=== PATIENT | female | born 1970 | race Caucasian/White ===

== ENCOUNTER 2023-09-03 15:51 | Outpatient (AMB) | payer BC, SELFPAY ==
--- NOTE | 2023-09-03 16:02 | MHC.PC.OV ---
Vital Signs 09/03/23 16:18 Height 5 ft 2.28 in Weight 172 lb 8 oz BMI 31.3 BP 102/66 Blood Pressure Location Lt brachial Position Sitting Respiration 14 Temp 97.6 F Temp Source Oral Intake Visit Reasons: Establish Care transfer Intake Note: New patient visit Allergies benzocaine topical Allergy (Unknown, Uncoded 09/03/23 16:04) burning skin nuts Allergy (Unknown, Uncoded 09/03/23 16:04) burning skin nuts, peanuts Allergy (Unknown, Uncoded 01/24/23 13:05) anaphylaxis nuts, soy Allergy (Unknown, Uncoded 01/24/23 13:05) gi upset Tobacco use date assessed: 09/03/23 Dental Screening Dental Screen Date: 09/03/23 Did you have a dental visit in the last 12 months?: Yes Did you have a dental problem in the last 6 months where you did not have access to dental care?: No Was dental information given to patient?: Patient has dentist HPI HPI Comments History of Present Illness Details The patient is a 53 year old female with a past medical history of prediabetes, anxiety, GERD, hyperlipidemia, hypothyroid, elevated LFTs, ASCUS, memory loss presenting for follow up She is troubled by ongoing memory changes. Worse over the past six months. Children tell her they are repeating themselves. She is not remembering things that happened in the last day, week. Feels like she has to concentrate on concentrating. She was seen for this previously. Did have an MRI-this showed microvascular disease. Dad had parkinsons, memory problems. She is having severe menopausal hot flashes. She went to integrative medicine and was prescribed bioidentical hormone replacement but she has been hesitant to start it. In past 2-3 months has had increased exertional fatigue, mild shortness of breath. No bess chest pain, sometimes tightness. BH: 2022. She continues to grieve but doing ok. Her eldest daughter recently graduated from high school. Mixed feelings. She followed with [facility] and has now transferred to a community therapist. Was on citalopram but intolerant side effects. Was on armodafinil for significant fatigue-had chest pain with this medication. Had more energy with adderall but worried that worsening memory so stopped. Was taking seroquel at night. stopped this History of prediabetes-continues to work out regularly, eat healthy. She was taking mounjaro with good effect Hypothyroid: TSH has been within goal on levothyroxine. Urogyn: Follows with urogyn. History of abnormal menses. Denia/menopausal. GERD: Stable. Saw GI-[facility]. On pepcid omeprazole Mammo UTD, pap UTD. Had colonoscopy 10/2020. ROS CONSTITUTIONAL: Denies weight loss, fever and chills. HEENT: Denies changes in vision and hearing. RESPIRATORY: Denies SOB and cough. CV: Denies palpitations and CP GI: Denies abdominal pain, nausea, vomiting and diarrhea. : Denies dysuria and urinary frequency. MSK: Denies new myalgia and joint pain. SKIN: Denies rash and pruritus. NEUROLOGICAL: Denies headache PSYCHIATRIC: Denies recent changes in mood. PHYSICAL EXAM: GENERAL: Alert and oriented x 3. NAD EYES: EOMI. Anicteric. HENT: Moist mucous membranes. No scleral icterus. No cervical lymphadenopathy. LUNGS: Clear to auscultation bilaterally. CARDIOVASCULAR: Regular rate and rhythm. No murmur. No JVD. ABDOMEN: Soft, non-tender +bs EXTREMITIES: No edema. Non-tender. SKIN: No rashes or lesions. Warm. NEUROLOGIC: No focal neurological deficits. CN II-XII grossly intact PSYCHIATRIC: Cooperative. 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 1. Little interest or pleasure in doing things: several days 2. Feeling down, depressed, or hopeless: several days 3. Trouble falling or staying asleep, or sleeping too much: more than half the days 4. Feeling tired or having little energy: several days 5. Poor appetite or overeating: not at all 6. Feeling bad about yourself - or that you are a failure or have let yourself or your family down: not at all 7. Trouble concentrating on things, such as reading the newspaper or watching television: more than half the days 8. Moving or speaking so slowly that other people could have noticed. Or the opposite - being so fidgety or restless that you have been moving around a lot more than usual: not at all 9. Thoughts that you would be better off or of hurting yourself in some way: not at all Total score: 7 Depression Screening Interpretation: Positive Depression Screening Follow-up: Community Mental Health Worker F/U Depression Screening Done: Yes Source: Developed by Drs. Chi Melgar, Eboni Renner, Roberto Bertrand and colleagues, with an educational toni from [employer]. AUDIT C Alcohol Use Questionnaire (AUDIT-C) 1. How often do you have a drink containing alcohol?: 2-4 times a month 2. How many drinks containing alcohol do you have on a typical day when you are drinking?: 3 or 4 3. How often do you have six or more drinks on one occasion?: Less than monthly (Couple times a year) Total Score: 4 Physical exam (Primary Care) Vital Signs: Last Vital Signs Temp 97.6 F 09/03/23 16:18 Resp 14 09/03/23 16:18 BP 102/66 09/03/23 16:18 BMI result Body Mass Index 31.3 Tobacco/Smoking Status: Tobacco use Status Tobacco use date assessed 09/03/23 09/03/23 16:20 Patient Tobacco Use Status Former Tobacco user 09/03/23 16:20 e-Cigarette/Vaping Use Never Used 09/03/23 16:20 PHQ-9: PHQ-9 Score PHQ-9: Total score 7 09/05/23 11:08 Depression Screening Interpretation: Positive Depression Screening Follow-up: Community Mental Health Worker F/U Assessment and Plan Assessment & Plan (1) Hot flashes: Comment: 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 Consider hormone replacement. Has not responded to SSRI Code(s): R23.2 - Flushing (2) Memory loss: Code(s): R41.3 - Other amnesia (3) Cerebral microvascular disease: Comment: Referral to memory clinic, neuropsychiatric testing Code(s): I67.89 - Other cerebrovascular disease (4) Fatigue: Code(s): R53.83 - Other fatigue Qualifiers: Fatigue type: unspecified Qualified Code(s): R53.83 - Other fatigue (5) Exertional dyspnea: Comment: Exercise stress test. Code(s): R06.09 - Other forms of dyspnea (6) Prediabetes: Code(s): R73.03 - Prediabetes Orders: Orders CA stress test 09/05/23 I67.89 - Other cerebrovascular disease, R06.09 - Other forms of dyspnea, R73.03 - Prediabetes Referrals Neurology Referral I67.89 - Other cerebrovascular disease, R41.3 - Other amnesia Neuropsychiatry Referral I67.89 - Other cerebrovascular disease, R41.3 - Other amnesia Coding Level of Care Code Tele Est Pt Level 4 (67023) Complex EM visit Add On G2211 Diagnoses Hot flashes R23.2 Memory loss R41.3 Cerebral microvascular disease I67.89 Fatigue, unspecified type R53.83 Fatigue type: unspecified Exertional dyspnea R06.09 Prediabetes R73.03
[2023-09-03 16:18] VITALS: BP 102/66; RESP 14; TEMP 36.4; BMI 31.3
== END 2023-09-03 16:41 | disposition home or self-care (01) ==
PROVIDERS: PCP Internal Medicine; Visit Provider Internal Medicine
DX: R23.2 Flushing (principal); R73.03 Prediabetes; R41.3 Other amnesia; I67.89 Other cerebrovascular disease; R53.83 Other fatigue; R06.09 Other forms of dyspnea
CPT/HCPCS: 99214

== ENCOUNTER → 2023-09-25 08:01 | Outpatient (REF) | payer BC, SELFPAY ==
--- NOTE | 2023-09-25 08:11 | CA_ITS ---
Acquisition Time: 2023-09-25 08:23:52 Total Exercise Time: 00:08:45 Test Indications: SOB Medications: SEE H Protocol: ANDREEA Max HR: 144 BPM 86% of Pred: 167 BPM Max BP: 170/090 mmHG Max Work Load: 10.1 METS Exercise stress test exercise 8 min 45 sec of Andreea protocol achieving 86% MPHR, with 4-5/10 chest pressure mid to left side, mild to moderate SOB, without arrhythmias, with normotensive response to exercise, without EKG changes. CHest pressure resolved by 2.5 min recovery. Breathing returned to baseline, Test reviewed with Dr. Covarrubias Suggest further testing due to chest pressure on exertion Referred By: Katia Guerrier Overread By: Renu Bolden
== END ==
LOC: HO.CARD 08:01
PROVIDERS: PCP Internal Medicine; Visit Provider Internal Medicine
DX: R06.09 Other forms of dyspnea (principal); I67.89 Other cerebrovascular disease; R73.03 Prediabetes
CPT/HCPCS: 93017

== ENCOUNTER → 2023-09-25 08:11 | Outpatient (BNV) | payer BC, SELFPAY | PROVIDERS: PCP Internal Medicine; Visit Provider Nurse Practitioner | DX: R06.02 Shortness of breath (principal) | CPT/HCPCS: 93016; 93018 ==

== ENCOUNTER 2023-10-22 15:50 | Outpatient (AMB) | payer BC, SELFPAY ==
--- NOTE | 2023-10-22 15:52 | MHC.PC.OV ---
Vital Signs 10/22/23 15:53 Height 5 ft 2 in Weight 172 lb BMI 31.5 BP 98/60 Blood Pressure Location Lt brachial Position Sitting Respiration 12 Pulse 88 Pulse Source Pulse Oximeter Pulse Oximetry (%) 99 Oxygen Delivery Method Room Air Intake Visit Reasons: follow up memory clinic/ stress test Intake Note: Patient is here to follow up for stress test ad memory clinic visit. Patient requests a refill on synthroid. Visual Coordinator Required: No Accompanied by: Self / Same As Patient Allergies benzocaine topical Allergy (Unknown, Uncoded 10/22/23 15:58) burning skin nuts Allergy (Unknown, Uncoded 10/22/23 15:58) burning skin nuts, peanuts Allergy (Unknown, Uncoded 10/22/23 15:58) anaphylaxis nuts, soy Allergy (Unknown, Uncoded 10/22/23 15:58) gi upset Tobacco use date assessed: 09/03/23 Dental Screening Dental Screen Date: 09/03/23 HPI HPI Comments History of Present Illness Details The patient is a 53 year old female with a past medical history of prediabetes, anxiety, GERD, hyperlipidemia, hypothyroid, elevated LFTs, ASCUS, memory loss presenting for follow up At last visit She is troubled by ongoing memory changes. Worse over the past six months. Children tell her they are repeating themselves. She is not remembering things that happened in the last day, week. Feels like she has to concentrate on concentrating. She was seen for this previously. Did have an MRI-this showed microvascular disease. Dad had parkinsons, memory problems. She was referred to neurology who recommended memory clinic referral which has been placed She is having severe menopausal hot flashes. She went to integrative medicine and was prescribed bioidentical hormone replacement. In past 2-3 months has had increased exertional fatigue, mild shortness of breath. No bess chest pain, sometimes tightness. During her recent stress test experienced shortness of breath and fatigue and she is pending cardiology consult. Blood pressure has been low. Fatigue continues BH: 2022. She continues to grieve but doing ok. Her eldest daughter recently graduated from high school. Mixed feelings. She followed with [facility] and has now transferred to a community therapist. Was on citalopram but intolerant side effects. Was on armodafinil for significant fatigue-had chest pain with this medication. Had more energy with adderall but worried that worsening memory so stopped. Was taking seroquel at night. History of prediabetes-continues to work out regularly, eat healthy. She was taking mounjaro with good effect Hypothyroid: TSH has been within goal on levothyroxine. Urogyn: Follows with urogyn. History of abnormal menses. Denia/menopausal. GERD: Stable. Saw GI-[facility]. On pepcid omeprazole Mammo UTD, pap UTD. Had colonoscopy 10/2020. ROS CONSTITUTIONAL: Denies weight loss, fever and chills. HEENT: Denies changes in vision and hearing. RESPIRATORY: Denies SOB and cough. CV: Denies palpitations and CP GI: Denies abdominal pain, nausea, vomiting and diarrhea. : Denies dysuria and urinary frequency. MSK: Denies new myalgia and joint pain. SKIN: Denies rash and pruritus. NEUROLOGICAL: Denies headache PSYCHIATRIC: Denies recent changes in mood. PHYSICAL EXAM: GENERAL: Alert and oriented x 3. NAD EYES: EOMI. Anicteric. HENT: Moist mucous membranes. No scleral icterus. No cervical lymphadenopathy. LUNGS: Clear to auscultation bilaterally. CARDIOVASCULAR: Regular rate and rhythm. No murmur. No JVD. ABDOMEN: Soft, non-tender +bs EXTREMITIES: No edema. Non-tender. SKIN: No rashes or lesions. Warm. NEUROLOGIC: No focal neurological deficits. CN II-XII grossly intact PSYCHIATRIC: Cooperative. 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 Current occupational exposures/hazards: Yes (around blood ) Cognitive needs: No Hearing needs: No Vision needs: No Physical exam (Primary Care) Vital Signs: Last Vital Signs Pulse 88 10/22/23 15:53 Resp 12 10/22/23 15:53 BP 98/60 10/22/23 15:53 Pulse Ox 99 10/22/23 15:53 Oxygen Delivery Method Room Air 10/22/23 15:53 BMI result Body Mass Index 31.5 Tobacco/Smoking Status: Tobacco use Status Tobacco use date assessed 09/03/23 10/22/23 15:52 Patient Tobacco Use Status Former Tobacco user 10/22/23 15:52 e-Cigarette/Vaping Use Never Used 10/22/23 15:52 Assessment and Plan Assessment & Plan (1) Cerebral microvascular disease: Code(s): I67.89 - Other cerebrovascular disease Plan: Control lipids. BP controlled Referred to neurology for microvascular disease, neuralgia, generalized weakness Referral previously placed to memory clinic to follow -awaiting consultation (2) Fatigue: Code(s): R53.83 - Other fatigue Qualifiers: Fatigue type: unspecified Qualified Code(s): R53.83 - Other fatigue Plan: Cortisol testing. Low BP (3) Hot flashes: Code(s): R23.2 - Flushing (4) Exertional dyspnea: Code(s): R06.09 - Other forms of dyspnea Plan: Cardiology consult pending Orders: Orders Cortisol, Free 10/22/23 R53.83 - Other fatigue, R73.03 - Prediabetes Hemoglobin A1c 10/22/23 R53.83 - Other fatigue, R73.03 - Prediabetes Referrals Neurology Referral I67.89 - Other cerebrovascular disease, M79.2 - Neuralgia and neuritis, unspecified, R41.3 - Other amnesia Coding Level of Care Code Est Pt Level 4 (09202) Diagnoses Cerebral microvascular disease I67.89 Fatigue, unspecified type R53.83 Fatigue type: unspecified Hot flashes R23.2 Exertional dyspnea R06.09
[2023-10-22 15:53] VITALS: BP 98/60; PULSE 88; RESP 12; O2SAT 99; BMI 31.5
== END 2023-10-22 16:52 | disposition home or self-care (01) ==
PROVIDERS: PCP Internal Medicine; Visit Provider Internal Medicine
DX: I67.89 Other cerebrovascular disease (principal); R53.83 Other fatigue; R23.2 Flushing; R06.09 Other forms of dyspnea
CPT/HCPCS: 99214

== ENCOUNTER → 2023-11-20 14:59 | Outpatient (REF) | payer BC, SELFPAY | LOC: HO.SL 14:59 | PROVIDERS: PCP Internal Medicine; Visit Provider Internal Medicine | DX: G47.33 Obstructive sleep apnea (adult) (pediatric) (principal); R53.83 Other fatigue; R41.3 Other amnesia; R06.83 Snoring | CPT/HCPCS: 95806 ==

== ENCOUNTER → 2023-11-20 15:28 | Outpatient (BNV) | payer BC, SELFPAY | PROVIDERS: PCP Internal Medicine; Visit Provider Internal Medicine | DX: G47.33 Obstructive sleep apnea (adult) (pediatric) (principal) | CPT/HCPCS: 95806 ==

== ENCOUNTER 2023-11-22 07:32 | Outpatient (REF) | payer BC, SELFPAY ==
[2023-11-22 11:37] LABS: Estimated Average Glucose 117 mg/dL; Hemoglobin A1c % 5.7 % (<6.0)
[2023-12-05 17:24] LABS: Cortisol, Free 0.44 mcg/dL
== END 2023-11-22 07:33 | disposition home or self-care (01) ==
LOC: HO.WFDLDS 07:32
PROVIDERS: Visit Provider Internal Medicine
DX: R53.83 Other fatigue (principal); R73.03 Prediabetes
CPT/HCPCS: 36415; 82530; 83036

== ENCOUNTER 2023-12-12 14:01 | Outpatient (AMB) | payer BC, SELFPAY ==
--- NOTE | 2023-12-12 14:03 | A.OFFVIS_ITS ---
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 Intake Note: New patient c/o chest pain with or without activity, palliations, and no energy Psychologist Required: No Allergies benzocaine topical Allergy (Unknown, Uncoded 10/22/23 15:58) burning skin nuts Allergy (Unknown, Uncoded 10/22/23 15:58) burning skin nuts, peanuts Allergy (Unknown, Uncoded 10/22/23 15:58) anaphylaxis nuts, soy Allergy (Unknown, Uncoded 10/22/23 15:58) gi upset Medication List - Last Reconciled 12/12/23 by Shad Covarrubias MD albuterol sulfate 90 mcg/actuation inhalation ascorbic acid (vitamin C) mg PO cholecalciferol (vitamin D3) 50 mcg PO DAILY levothyroxine 50 mcg PO DAILY 90 days magnesium 200 mg PO DAILY HPI Comments Details: Maria Del Carmen has been referred for cardiac consultation. She has been seen by [facility] in the past but she would like to switch. Various complaints. She states she is frequently dizzy. Today's blood pressure is on the lower side. Apparently she was weighing over 200 lb and has lost a lot of w eight recently. Even when she was at her previous weight, her blood pressure was quite low. More than likely, losing weight made her blood pressure even lower. Hence she is probably getting orthostatic. 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 Hence not clear if she has something labile. Otherwise, frequently tired and exhausted. Random chest pains. Sensation of heart fluttering at different times. No documented coronary artery disease or myocardial infarction or cardiomyopathy. [facility] Medical History Right ankle pain Prediabetes Obesity, Class I, BMI 30-34.9 Lumbar radiculopathy Low back pain Hypothyroidism Elevated LFTs Depression Anxiety Surgical History H/O abdominoplasty Family History Father Parkinson disease Mother No problems noted. 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 Current occupational exposures/hazards: Yes (around blood ) Cognitive needs: No Hearing needs: No Vision needs: No Review of Systems Const Denies chills, Denies daytime sleepiness, Denies fatigue, Denies fever(s), Denies frequent falls, Denies poor appetite, Denies snoring, Denies stops breathing during sleep, Denies weakness, Denies weight gain and Denies weight loss Eyes Denies loss of vision ENT Denies dizziness and Denies hearing loss Card Denies chest pain, Denies claudication, Denies leg edema, Denies lightheadedness, Denies palpitations, Denies dyspnea, Denies dyspnea on exertion and Denies orthopnea Resp Denies cough, Denies excessive phlegm production, Denies dyspnea, Denies dyspnea on exertion, Denies snoring and Denies wheezing GI Denies abdominal pain, Denies hematochezia, Denies change in bowel habits, Denies nausea and Denies vomiting Denies urinary frequency and Denies dysuria Musc Denies arthralgias, Denies muscle weakness, Denies numbness and Denies other (frequent falls) Skin/Breast Denies nail changes and Denies rash Neuro Denies Abnormal speech present, Denies dizziness, Denies frequent falls, Denies loss of vision, Denies memory loss, Denies numbness and Denies weakness Psych Denies depression and Denies memory loss Endo Denies fatigue and Denies palpitations Galen/Lymph Reports easy bruising and Reports other (anemia) Aller/Immun Denies wheezing Physical Exam Vital Signs: Last Vital Signs Pulse 72 12/12/23 14:04 BP 90/64 12/12/23 14:04 BMI result Body Mass Index 31.9 Const General: comfortable and no acute distress Orientation/consciousness: patient oriented x3 HEENT Other: Unremarkable Head: Yes normal to inspection Neck Neck: Yes normal visual inspection Chest Chest palpation & inspection: normal inspection of the chest Resp Auscultation: clear to auscultation bilaterally Cardio Palpation: normal PMI Heart sounds: S1 normal heart sound present, S2 normal heart sound present, no gallops, Murmur heart sound present systolic I/ and at the right sternal border and no rubs GI Palpation (GI): Soft to palpation Back/Spine/Pelvis Other: unremarkable Skin General skin exam: no rashes or lesions noted Neuro General: patient oriented x3 Speech: No Abnormal speech present Extrem General: Yes normal to inspection Psych Mental Status: mental status grossly normal Assessment & Plan Assessment & Plan (1) Dizziness: Code(s): R42 - Dizziness and giddiness Category: Medical (2) Hypotension: Code(s): I95.9 - Hypotension, unspecified Category: Medical (3) Chest pain: Code(s): R07.9 - Chest pain, unspecified Category: Medical (4) Heart palpitations: Code(s): R00.2 - Palpitations Category: Medical Plan In the EKG from [facility], underlying rhythm is sinus at 67/Min; no significant ST-T changes and otherwise unremarkable. Normal GA and corrected QT. In the exercise stress test, she was able to do 10.1 METS on Tl protocol and had some chest pressure, but no EKG changes. Calcium scoring CT scan with a score of 0. Overall, her dizziness could be related to low blood pressure which might have gotten worse due to weight loss. Hence advised salt supplementation and adequate fluid intake. As she is also describing high blood pressures in the 160s/170s at times, we can refer her to Nephrology for 24 hour ambulatory blood pressure monitoring. She agrees. With regard to question of palpitations, check Holter monitor. Obtain echocardiogram. Chest pain seems very atypical and not entirely suggestive of obstructive CAD. With the calcium score of 0 and adequate exercise capacity on the treadmill, we can monitor for now. Follow-up in 3 months. Orders: Orders CA echo transthoracic complete Today R42 - Dizziness and giddiness ECG 7 day holter monitor Today R00.2 - Palpitations Referrals Nephrology Referral I95.9 - Hypotension, unspecified Coding Level of Care Code New Pt Level 4 (19613) Diagnoses Dizziness R42 Hypotension I95.9 Chest pain R07.9 Heart palpitations R00.2
[2023-12-12 14:04] VITALS: BP 90/64; PULSE 72; BMI 31.9
== END 2023-12-12 14:39 | disposition home or self-care (01) ==
LOC: HO.HCS 14:01
PROVIDERS: PCP Internal Medicine; Referring Provider Internal Medicine; Visit Provider Internal Medicine
DX: R42 Dizziness and giddiness (principal); I95.9 Hypotension, unspecified; R07.9 Chest pain, unspecified; R00.2 Palpitations
CPT/HCPCS: 99204

== ENCOUNTER → 2023-12-12 14:01 | Outpatient (BNVA) | payer BC, SELFPAY | PROVIDERS: PCP Internal Medicine; Visit Provider Internal Medicine ==

== ENCOUNTER 2023-12-21 11:02 | Outpatient (AMB) | payer BC, SELFPAY ==
[2023-12-21 11:06] VITALS: BP 118/74; PULSE 74; O2SAT 97; BMI 31.8
--- NOTE | 2023-12-21 11:06 | HO.NEPHOV_ITS ---
Vital Signs 12/21/23 11:06 Height 5 ft 2 in Weight 174 lb BMI 31.8 BP 118/74 Blood Pressure Location Rt brachial Position Sitting Pulse 74 Pulse Source Pulse Oximeter Pulse Oximetry (%) 97 Oxygen Delivery Method Room Air Intake Visit Reasons: Hypotension, unspecified/ Conf Manager Social Services Required: No Accompanied by: Self / Same As Patient Allergies benzocaine topical Allergy (Unknown, Uncoded 10/22/23 15:58) burning skin nuts Allergy (Unknown, Uncoded 10/22/23 15:58) burning skin nuts, peanuts Allergy (Unknown, Uncoded 10/22/23 15:58) anaphylaxis nuts, soy Allergy (Unknown, Uncoded 10/22/23 15:58) gi upset Medication List - Last Reconciled 12/21/23 by Abran Newman MD albuterol sulfate 90 mcg/actuation inhalation ascorbic acid (vitamin C) mg PO DAILY cholecalciferol (vitamin D3) 50 mcg PO DAILY levothyroxine 50 mcg PO DAILY 90 days magnesium 200 mg PO DAILY HPI Comments Details: Gela is a pleasant 53-year-old woman who has been referred for hypotension. Over the last 2 years she was lost about 30 lb. She did not undergo any weight loss surgery. She underwent tummy tuck surgery. She has had low blood pressures with associated lightheadedness when she stands up. She is not on any antihypertensive medication. She has a history of hypothyroidism and currently on levothyroxine. Recently lost her of 30 years. She has 2 healthy children. She works at [employer]. No history of smoking. No history of alcohol abuse. She does not take any oral contraceptives. She has fatigue. No shortness of breath. No nausea or vomiting no diarrhea constipation. No urinary symptoms. No edema. No fever no rash. [facility] Medical History Right ankle pain Prediabetes Obesity, Class I, BMI 30-34.9 Lumbar radiculopathy Low back pain Hypothyroidism Elevated LFTs Depression Anxiety Surgical History H/O abdominoplasty Family History Father Parkinson disease Mother No problems noted. 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 Standing blood pressure was 110/80 mm Hg. She felt lightheaded Const General: comfortable; No acute distress Orientation/consciousness: patient oriented x3 Eyes General: appearance normal, both eyes and all related structures Visual Lake: normal visual lake by confrontation Neck Neck: Yes supple and Yes no JVD Resp Effort & Inspection: normal respiratory effort and respiratory effort not decreased Auscultation: rhonchi Cardio Palpation: no palpable S3 and no palpable S4 Heart sounds: no rubs GI Inspection: Yes normal to inspection Palpation (GI): Soft to palpation Percussion: Yes normal to percussion Auscultation: normal bowel sounds General: Yes no CVA tenderness Back/Spine/Pelvis Back: no CVA tenderness Skin General skin exam: no petechiae and no purpura Neuro General: patient oriented x3 and no focal motor deficits Extrem General: No clubbing and No edema Results Reviewed Results Reviewed: Recent lab results reviewed Nephrology Results: Urine Protein Negative mg/dL (Neg-Trace) 12/21/23 Assessment & Plan Assessment & Plan (1) Hypotension: Code(s): I95.9 - Hypotension, unspecified Category: Medical (2) Hypothyroidism: Code(s): E03.9 - Hypothyroidism, unspecified Category: Medical Plan 53-year-old man with obesity has hypotension. She has symptomatic hypotension along with fatigue. Plan Obtain 24 hour ABP M. Check serum cortisol , aldosterone and plasma renin activity. Check thyroid function test again. Based on the above investigations I would consider using midodrine if she has persistent symptomatic hypotension. Encouraged her to increase fluid intake. She should stay on a regular salt diet. Further workup will be based on the outcome of the above investigation Orders: Orders Renin Today I95.9 - Hypotension, unspecified AMB 24 HR B/P Monitor INTERPRETATION Today I10 - Essential (primary) hypertension, I95.9 - Hypotension, unspecified Aldosterone Today I95.9 - Hypotension, unspecified Cortisol, Free Today I95.9 - Hypotension, unspecified Metanephrines, Plasma Today I95.9 - Hypotension, unspecified TSH reflex Free T4 Today E03.9 - Hypothyroidism, unspecified, I95.9 - Hypotension, unspecified Coding Level of Care Code New Pt Level 4 (90363) Diagnoses Hypotension I95.9 Hypothyroidism E03.9
== END 2023-12-21 11:36 | disposition home or self-care (01) ==
PROVIDERS: PCP Internal Medicine; Referring Provider Internal Medicine; Visit Provider Internal Medicine Hypertension Specialist
DX: I95.9 Hypotension, unspecified (principal); E03.9 Hypothyroidism, unspecified
CPT/HCPCS: 99204

== ENCOUNTER 2023-12-21 11:02 | Outpatient (REF) | payer BC, SELFPAY ==
[2023-12-21 12:32] LABS: Appearance Urine Clear; Color Urine Yellow; Glucose Urine UA Negative (Negative); Leukocyte Esterase Urine Negative (Negative); Nitrite Urine Negative (Negative); PH 5.5 (5.0-9.0); Specific Gravity - Urine 1.015 (1.005-1.025); Urine Blood Negative (Negative); Urine Ketones Negative (Negative); Urine Protein Negative (Neg-Trace)
[2023-12-21 13:14] LABS: Alanine Aminotransferase 15 U/L (0-31); Albumin Level 4.6 g/dL (3.5-5.0); Alkaline Phosphatase 80 U/L (39-117); Aspartate Amino Transferase 15 U/L (5-31); Bilirubin Direct 0.2 mg/dL (0.0-0.5); Bilirubin Total 0.5 mg/dL (0.0-1.0); Iron 54 mcg/dL (30-160); Percent Iron Saturation 16 % (15-50); Total Iron Binding Capacity 339 mcg/dL (228-428); Total Protein 7.8 g/dL (6.5-8.0); Unsaturated Iron Binding 285 ug/dL
[2023-12-21 13:32] LABS: TSH reflex Free T4 1.22 uIU/mL (0.32-4.0)
[2023-12-21 13:45] LABS: Folate 10.9 ng/mL (> or = 4.0); Vitamin B12 1141 pg/mL (200-900)
[2023-12-25 05:07] LABS: Lyme Abs Screen <0.90 index
[2023-12-25 22:49] LABS: VITAMIN D (1,25 OH) D3 32 pg/mL; Vit D (1,25-Dihydroxy) Total 32 pg/mL (18-72); Vitamin D (1,25 OH) D2 <8 pg/mL
[2023-12-26 14:53] LABS: Metanephrine, Free <25 pg/mL (<=57); Normetanephrines, Free 125 pg/mL (<=148); Total Metanephrine, Free 125 pg/mL (<=205)
[2023-12-31 02:19] LABS: Cortisol, Free 0.17 mcg/dL
== END 2023-12-21 11:03 | disposition home or self-care (01) ==
LOC: HO.LAB 11:02
PROVIDERS: PCP Internal Medicine; Referring Provider Internal Medicine; Visit Provider Internal Medicine Hypertension Specialist
DX: I95.9 Hypotension, unspecified (principal); E03.9 Hypothyroidism, unspecified; R82.90 Unspecified abnormal findings in urine; R79.89 Other specified abnormal findings of blood chemistry; R41.3 Other amnesia; R53.83 Other fatigue
CPT/HCPCS: 36415; 80076; 81003; 82088; 82530; 82607; 82652; 82746; 83540; 83835; 84244; 84443; 86617; 86618

== ENCOUNTER → 2024-01-08 10:56 | Outpatient (REF) | payer BC, SELFPAY ==
--- NOTE | 2024-01-08 11:01 | HM_ITS ---
* Total monitoring time 4 days. * Underlying rhythm is sinus with an average rate of 78/Min. * Very rare ventricular ectopy. * No significant pauses or high-grade AV blocks. * No patient markers or diary events. MTDD
--- NOTE | 2024-01-08 11:01 | CA_ITS ---
Transthoracic Echocardiogram Patient (Last, First, Middle): Maria Del Carmen Guerra C Gender: Female Date of : 1970 Age: 53 Procedure Date: 01/08/2024 Procedure Type: Transthoracic Echocardiogram Location: OP Height: 160.02 cm Weight: 79.38 kg BSA: 1.83 m2 Heart Rate: bpm BP: 102 / 72 mmHg Carrier Associate: YUE Referring MD: Shad Covarrubias MD Symptoms: R42 - Dizziness and giddiness Study Quality: Fair ECG Rhythm: Sinus Conclusions: - The left ventricular systolic function is normal. The visually estimated ejection fraction is between 65-70%. - No obvious valvular pathology seen on this study. Findings Procedure Information The patient declines contrast. Left Ventricle Normal left ventricular cavity size. There is normal left ventricular wall thickness. The left ventricular systolic function is normal. The visually estimated ejection fraction is between 65-70%. There is no evidence of regional wall motion abnormalities. Diastolic function is normal for age. Right Ventricle Normal right ventricular cavity size and systolic function. Atria Both atria are normal in size. Aortic Valve There is a normal trileaflet aortic valve. There is no aortic valve stenosis. There is no aortic valve regurgitation. Mitral Valve The mitral valve appears normal. There is no mitral valve regurgitation. There is no mitral valve stenosis. Pulmonic Valve The pulmonic valve is likely normal. Tricuspid Valve Normal tricuspid valve structure. There is mild tricuspid valve regurgitation. There is no evidence of pulmonary hypertension. Great Vessels The asc aorta is normal in size. Venous The inferior vena cava is normal in size and collapses greater than 50% with inspiration. Pericardium/Pleural There is no evidence of pericardial effusion. Prior Study Comparison No prior study available for comparison. Recommendations, Care & Conclusions No obvious valvular pathology seen on this study. Measurements 2D Linear Measurements IVSd: 0.95 0.6-0.9/0.6-1.0 cm LVIDd: 4.49 3.9-5.3/4.2-5.9 cm LVIDd Index: 2.45 2.4-3.2/2.2-3.1 cm/m2 LVIDs: 3.15 2.0-3.6 cm LVPWd: 0.83 0.7-1.1 cm LA Diam: 2.80 2.7-3.8/3.0-4.0 cm LAIDs Index: 1.53 1.5-2.3 cm/m2 LV Mass: 162.46 67-162/88-224 g LV Mass Index: 88.77 43-95/49-115 g/m2 LVOT Diam: 2.00 3.0+(-)1.3 cm Mitral Valve MV Pk E: 0.75 MV PK A: 0.51 MV Decel Time: 176.00 E/A: 1.50 E'Lateral: 11.00 E'Medial: 7.40 E/E' Med: 10.10 E/E' Lat: 6.80 PHT: 51.00 MVA PHT: 4.31 Decel [place]: 4.24 Aortic Valve AoV Pk Juan: 1.56 AoV Mn Juan: 1.15 AoV VTI: 0.36 AoV Pk Grad: 10.00 Aov Mn Grad: 6.00 BRIAN Cont.VTI: 1.93 LVOT LVOT Pk Juan: 0.97 LVOT Mn Juan: 0.71 LVOT VTI: 0.22 LVOT Pk Grad: 4.00 LVOT Mn Grad: 2.00 LVOT Diam: 2.00 LVOT Area: 3.14 Diastolic Function MV Pk E: 0.75 MV Pk A: 0.51 E/A: 1.50 E'Medial: 7.40 E/E' Med: 10.10 E' Laterial: 11.00 E/E' Lat: 6.80 Right Ventricle TAPSE (mm): 22.70 TVS' Juan: 12.20 Tricuspid Valve TR Pk Juan: 1.98 TR Pk Grad: 16.00 RA Press: 3.00 RVSP: 19.00 Great Vessels Aorta Sinus of Valsalva: 3.17 2.0-3.[address] [place]: 3.15 1.7-3.4 cm Ao Asc: 3.20 2.1-3.4 cm Updated in Other Vendor System with Status of Final Shad Covarrubias MD electronically signed on 01/09/2024 11:01:29 AM with status of Final
== END ==
LOC: HO.CARD 10:56
PROVIDERS: PCP Internal Medicine; Visit Provider Internal Medicine
DX: R42 Dizziness and giddiness (principal); R00.2 Palpitations
CPT/HCPCS: 93242; 93306

== ENCOUNTER → 2024-01-08 11:01 | Outpatient (BNV) | payer BC, SELFPAY | PROVIDERS: PCP Internal Medicine; Visit Provider Internal Medicine | DX: I49.3 Ventricular premature depolarization (principal) | CPT/HCPCS: 93244; 93306 ==

== ENCOUNTER → 2024-01-11 16:18 | Outpatient (AMB) | payer BC, SELFPAY ==
--- NOTE | 2024-01-11 16:15 | A.OFFPC_ITS ---
Intake Visit Reasons: Review Results Allergies benzocaine topical Allergy (Unknown, Uncoded 01/11/24 16:16) burning skin nuts Allergy (Unknown, Uncoded 01/11/24 16:16) burning skin nuts, peanuts Allergy (Unknown, Uncoded 01/11/24 16:16) anaphylaxis nuts, soy Allergy (Unknown, Uncoded 01/11/24 16:16) gi upset Tobacco use date assessed: 09/03/23 Dental Screening Dental Screen Date: 09/03/23 HPI HPI Comments History of Present Illness Details The patient is a 53 year old female with a past medical history of p rediabetes, anxiety, GERD, hyperlipidemia, hypothyroid, elevated LFTs, ASCUS, memory loss presenting for follow up At last visit She is troubled by ongoing memory changes. Worse over the past six months. Children tell her they are repeating themselves. She is not remembering things that happened in the last day, week. Feels like she has to concentrate on concentrating. She was seen for this previously. Did have an MRI-this showed microvascular disease. Dad had parkinsons, memory problems. She was evaluated by the memory clinic and diagnosed with MDD. Medicatioin revi ew completed-venlafaxaine recommended (to be prescribed by PCP) She is having severe menopausal hot flashes. She went to integrative medicine and was prescribed bioidentical hormone replacement. CV: Recently saw cardiology, note reviewed. In past 2-3 months has had increased exertional fatigue, mild shortness of breath. No bess chest pain, sometimes tightness. During her recent stress test experienced shortness of breath and fatigue and she is pending cardiology consult. Blood pressure has been low. Fatigue continues BH: 2022. She continues to grieve but doing ok. Her eldest daughter recently graduated from high school. She followed with [facility] and has now transferred to a community therapist, more recently at consultation with psychiatry at [facility] (see above). Was on citalopram but intolerant side effects. Was on armodafinil for significant fatigue-had chest pain with this medication. Had more energy with adderall but worried that worsening memory so stopped. Was taking seroquel at night. History of prediabetes-continues to work out regularly, eat healthy. She was taking mounjaro with good effect Hypothyroid: TSH has been within goal on levothyroxine. Urogyn: Follows with urogyn. History of abnormal menses. Denia/menopausal. GERD: Stable. Saw GI-[facility]. On pepcid omeprazole Mammo UTD, pap UTD. Had colonoscopy 10/2020. ROS see HPI PHYSICAL EXAM: Telehealth [facility] Medical History Right ankle pain Prediabetes Obesity, Class I, BMI 30-34.9 Lumbar radiculopathy Low back pain Hypothyroidism Elevated LFTs Depression Anxiety Surgical History H/O abdominoplasty Family History Father Parkinson disease Mother No problems noted. 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 Current occupational exposures/hazards: Yes (around blood ) Cognitive needs: No Hearing needs: No Vision needs: No Physical exam (Primary Care) Tobacco/Smoking Status: Tobacco use Status Tobacco use date assessed 09/03/23 01/11/24 16:17 Patient Tobacco Use Status Former Tobacco user 01/11/24 16:17 e-Cigarette/Vaping Use Never Used 01/11/24 16:17 Telehealth Telehealth Telehealth Platform: Telephone Location of provider rendering services: practice address Location of patient: address on file Patient Identification confirmed using: Name, : Yes Telehealth method: voice only Patient verbally consented to treatment: Yes Patient verbally consented to billing insurance company: Yes Patient informed of any privacy concerns related to visit: Yes Minutes spent on Phone/Video with Pt.: 32 Coding Level of Care Code Tele Est Pt Level 4 (79816) Diagnoses Memory loss R41.3 Exertional dyspnea R06.09 Assessment & Plan Assessment & Plan (1) Memory loss: Code(s): R41.3 - Other amnesia Category: Medical Plan: Reviewed memory clinic evaluation. Start effexor as recommended. Follow up in 4 weeks. (2) Exertional dyspnea: Code(s): R06.09 - Other forms of dyspnea Category: Medical Plan: Cardiology note reviewed BP soft-follow recommendations Medications: New venlafaxine ER 37.5 mg cap oral daily for 2 weeks then increase to 2 cap oral daily for 2 weeks then increase to 150mg daily 37.5 mg PO BEDTIME 42 caps 0RF
== END ==
LOC: HO.HMCFM 16:18
PROVIDERS: PCP Internal Medicine; Visit Provider Internal Medicine
DX: R41.3 Other amnesia (principal); R06.09 Other forms of dyspnea

== ENCOUNTER → 2024-01-11 16:18 | Outpatient (BNVA) | payer BC, SELFPAY | PROVIDERS: PCP Internal Medicine; Visit Provider Internal Medicine ==

== ENCOUNTER → 2024-01-14 09:03 | Outpatient (BNVA) | payer BC, SELFPAY | PROVIDERS: PCP Internal Medicine; Visit Provider Internal Medicine Hypertension Specialist ==

== ENCOUNTER → 2024-01-15 08:47 | Outpatient (BNVA) | payer BC, SELFPAY | PROVIDERS: PCP Internal Medicine; Visit Provider Internal Medicine Hypertension Specialist | DX: Z01.89 Encounter for other specified special examinations (principal) | CPT/HCPCS: 93786 ==

== ENCOUNTER 2024-01-17 15:40 | Outpatient (AMB) | payer BC, SELFPAY ==
--- NOTE | 2024-01-17 15:40 | HO.NEPHOV_ITS ---
Vital Signs 01/17/24 15:41 Height 5 ft 2 in Weight 179 lb BMI 32.7 BP 98/64 Blood Pressure Location Lt brachial Position Sitting Pulse 75 Pulse Source Pulse Oximeter Pulse Oximetry (%) 96 Oxygen Delivery Method Room Air Intake Visit Reasons: 3-4 wks follow up/ Conf Speech Language Specialist Required: No Accompanied by: Self / Same As Patient Allergies benzocaine topical Allergy (Unknown, Uncoded 01/11/24 16:16) burning skin nuts Allergy (Unknown, Uncoded 01/11/24 16:16) burning skin nuts, peanuts Allergy (Unknown, Uncoded 01/11/24 16:16) anaphylaxis nuts, soy Allergy (Unknown, Uncoded 01/11/24 16:16) gi upset Medication List - Last Reconciled 01/17/24 by Abran Newman MD albuterol sulfate 90 mcg/actuation inhalation ascorbic acid (vitamin C) mg PO DAILY cholecalciferol (vitamin D3) 50 mcg PO DAILY levothyroxine 50 mcg PO DAILY 90 days magnesium 200 mg PO DAILY venlafaxine ER 75 mg (2 x 37.5 mg) PO BEDTIME 30 days HPI Comments Details: Gela is a pleasant 53-year-old woman who has been referred for hypotension. Over the last 2 years she was lost about 30 lb. She did not undergo any weight loss surgery. She underwent tummy tuck surgery. She has had low blood pressures with associated lightheadedness when she stands up. She is not on any antihypertensive medication. She has a history of hypothyroidism and currently on levothyroxine. Recently lost her of 30 years. She has 2 healthy children. She works at [employer]. No history of smoking. No history of alcohol abuse. She does not take any oral contraceptives. She has fatigue. No shortness of breath. No nausea or vomiting no diarrhea constipation. No urinary symptoms. No edema. No fever no rash. 01/17/2024. Gela continues to have fatigue. She underwent a workup. Serum cortisol and metanephrines were normal. 24 hour ambulatory blood pressure monitoring revealed significantly low blood pressures throughout [facility] Medical History Right ankle pain Prediabetes Obesity, Class I, BMI 30-34.9 Lumbar radiculopathy Low back pain Hypothyroidism Elevated LFTs Depression Anxiety Surgical History H/O abdominoplasty Family History Father Parkinson disease Mother No problems noted. 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 Current occupational exposures/hazards: Yes (around blood ) Cognitive needs: No Hearing needs: No Vision needs: No Physical Exam Vital Signs: Last Vital Signs Pulse 75 01/17/24 15:41 BP 98/64 01/17/24 15:41 Pulse Ox 96 01/17/24 15:41 Oxygen Delivery Method Room Air 01/17/24 15:41 BMI result Body Mass Index 32.7 Const General: comfortable; No acute distress Orientation/consciousness: patient oriented x3 Eyes General: appearance normal, both eyes and all related structures Visual Lake: normal visual lake by confrontation Neck Neck: Yes supple and Yes no JVD Resp Effort & Inspection: normal respiratory effort and respiratory effort not decreased Auscultation: rhonchi Cardio Palpation: no palpable S3 and no palpable S4 Heart sounds: no rubs GI Inspection: Yes normal to inspection Palpation (GI): Soft to palpation Percussion: Yes normal to percussion Auscultation: normal bowel sounds General: Yes no CVA tenderness Back/Spine/Pelvis Back: no CVA tenderness Skin General skin exam: no petechiae and no purpura Neuro General: patient oriented x3 and no focal motor deficits Extrem General: No clubbing and No edema Office Procedures 24 B/P Monitor Interpretation Details: Daytime average blood pressure 106/71 Nighttime average blood pressure 19/66 24 hour average blood pressure 104/70. Minimal nocturnal dipping No evidence of white coat hypertension . CPT: 46089 24 Hour Blood Pressure Monitor Reading Procedure code (CPT) selection complete Results Reviewed Nephrology Results: Urine Protein Negative mg/dL (Neg-Trace) 12/21/23 Assessment & Plan Assessment & Plan (1) Hypotension: Code(s): I95.9 - Hypotension, unspecified Category: Medical (2) Hypothyroidism: Code(s): E03.9 - Hypothyroidism, unspecified Category: Medical Plan 53-year-old woman with obesity has hypotension. She has symptomatic hypotension along with fatigue. Plan 24 hour ABP M revealed low blood pressures throughout serum cortisol , aldosterone and plasma renin activity and thyroid function was normal Given the significant degree of fatigue I will try her on midodrine 2.5 mg once a day. Encouraged her to increase fluid intake. She should stay on a regular salt diet. Orders: Orders AMB 24 HR B/P Monitor INTERPRETATION Today I10 - Essential (primary) hypertension Medications: New midodrine 2.5 mg PO ONCE 30 tabs 2RF Coding Level of Care Code Est Pt Level 4 (04129) Diagnoses Hypotension I95.9 Hypothyroidism E03.9 CPT Codes - CPT: 53059 24 Hour Blood Pressure Monitor Reading ([id number])
[2024-01-17 15:41] VITALS: BP 98/64; PULSE 75; O2SAT 96; BMI 32.7
== END 2024-01-17 15:57 | disposition home or self-care (01) ==
PROVIDERS: PCP Internal Medicine; Visit Provider Internal Medicine Hypertension Specialist
DX: I95.9 Hypotension, unspecified (principal); E03.9 Hypothyroidism, unspecified
CPT/HCPCS: 93790; 99214

== ENCOUNTER → 2024-01-17 15:40 | Outpatient (BNVA) | payer BC, SELFPAY | PROVIDERS: PCP Internal Medicine; Visit Provider Internal Medicine Hypertension Specialist ==

== ENCOUNTER 2024-02-04 07:45 | Outpatient (AMB) | payer BC, SELFPAY ==
[2024-02-04 07:48] VITALS: BP 102/68; PULSE 82; BMI 32.3
--- NOTE | 2024-02-04 07:48 | A.OFFVIS_ITS ---
Vital Signs 02/04/24 07:48 Height 5 ft 2 in Weight 176 lb 12.972 oz BMI 32.3 BP 102/68 Blood Pressure Location Lt brachial Position Sitting Pulse 82 Pulse Source Pulse Oximeter Intake Visit Reasons: Hypothyroidism, concern for Addisons-confirmed Intake Note: New patient present today for Hypothyroidism and concern for Liberty's. Rollout Manager Required: No Accompanied by: Self / Same As Patient Allergies benzocaine topical Allergy (Unknown, Uncoded 02/04/24 07:52) burning skin nuts Allergy (Unknown, Uncoded 02/04/24 07:52) burning skin nuts, peanuts Allergy (Unknown, Uncoded 02/04/24 07:52) anaphylaxis nuts, soy Allergy (Unknown, Uncoded 02/04/24 07:52) gi upset Medication List - Last Reconciled 02/04/24 by Kristen Benavides MD albuterol sulfate 90 mcg/actuation inhalation ascorbic acid (vitamin C) mg PO DAILY cholecalciferol (vitamin D3) 125 mcg PO DAILY levothyroxine 50 mcg PO DAILY 90 days magnesium 200 mg PO DAILY midodrine 2.5 mg PO ONCE HPI Comments Details: 53-year-old female here today for initial evaluation of hypothyroidism and concerns for cortisol deficiency. 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 Hypothyroidism Endorses she had left partial thyroidectomy after she was noted to be hyperthyroid , said she had a biopsy of the left side reported abnormal cells , per patient patholog was benigh. LMP in July [address] Freeman retired. hasnt seem them recently. On levothyroxine 50 mcg daily she has been on this dose forever. Taking it appropriatetly. Reports excessive fatigue for 3 years. Reports very low mood , motivation. Lost in 2021. Feels frutrated that symptoms were attributed to grief. Reporting hot flashes . Reports contipation. Patient currently denies heat or cold intolerance, , mood changes, low energy, changes in appearance of eyes or vision changes, tremors, increased diaphoresis or dry skin. ? Reports intermittent palpitations and hair loss. Reports she used to be 5' 3.5 now 5 '2 No fractures reports back pain and sore hips . Back pain in intermittent. Weight stable this year. Says she has lost 30 lbs since her in 2021 but she is frustrated because used to be much less before, No nausea or vomiting. Reports lightheadness, dizziness corrleated with low blood pressures she says, she has midodrine prescribed a few weeks ago , only required it a few times. Saw integrative medicine last year and prescribed hormones but did not take per patient , only on vaginal estrogen. Patient denies any difficulty swallowing, pain on swallowing or voice changes or difficulty breathing. Patient denies any history of childhood neck radiation. Denies having ever used lithium, amiodarone or biotin supplements. Patient denies any family history of thyroid cancer or thyroid disease. No blood clots, no stroke or Mi. Maternal grandmother and paternal 2 aunts of breast cancer. No personal history of breast cancer. Physical exam General: sitting comfortably in no acute distress HEENT: normocephalic/atraumatic, moist oral mucosa Neck: supple, symmetrical, no thyromegaly , no dorsocervical or supraclavicular fat pads Cardiac: normal heart sounds Pulm: normal breath sounds B/L, no added breath sounds Abd: not distended, no tenderness Extremities: no edema, no signs of myxedema Neuro: AAO x3, Speech: normal, no facial droop, moving all 4 extremities Skin: No hyperpigmentation noted Laboratory Tests 11/22/23 12/21/23 07:32 12:03 Renin 1.60 Aldosterone 20 TSH 1.22 Free Cortisol 0.44 0.17 Plasma Free Metaneph <25 Plasma Free Normeta 125 Plas Total Metaneph 125 PFSH Medical History Right ankle pain Prediabetes Obesity, Class I, BMI 30-34.9 Lumbar radiculopathy Low back pain Hypothyroidism Elevated LFTs Depression Anxiety Surgical History H/O abdominoplasty Family History Father Parkinson disease Mother No problems noted. 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 Current occupational exposures/hazards: Yes (around blood ) Cognitive needs: No Hearing needs: No Vision needs: No Physical Exam Vital Signs: Last Vital Signs Pulse 82 02/04/24 07:48 BP 102/68 02/04/24 07:48 BMI result Body Mass Index 32.3 Assessment & Plan Assessment & Plan (1) Hypothyroidism: Code(s): E03.9 - Hypothyroidism, unspecified Category: Medical Qualifiers: Hypothyroidism type: postoperative Qualified Code(s): E89.0 - Postprocedural hypothyroidism Plan: 53-year-old female who has a history of thyroiditis back when she was 38 years old, and was also found to have nodules on her left side of the thyroid, status post left lobectomy around age 38 years. now coming in for follow up of postoperative hypothyroidism. TSH normal from November 2023. Plan: -continue levothyroxine 50 mcg daily -TSH and free T4 to be done annually (2) Fatigue: Code(s): R53.83 - Other fatigue Category: Medical Qualifiers: Fatigue type: unspecified Qualified Code(s): R53.83 - Other fatigue Plan: She has been noted to have worsening fatigue for the past 3 years. Her blood pressure has also been noted to be low 80s systolic. She was prescribed midodrine by nephrology if her blood pressure drops less than 85 systolic, she has required it intermittently. She has lost 30 lb over the past 2 years. Denies any nausea or vomiting but does report lightheadedness and dizziness. Aldosterone and renin levels are adequate from November 2023 and do not suggest went well a corticoid deficiency though I will repeat these with a basic metabolic panel. I will also check her ACTH, cortisol, DHEA-S level. Free cortisol levels done since November 2023 were unremarkable. If she continues to have these symptoms with baseline cortisol in the lower side, we will consider her for evaluation for ACTH stimulation test for concerns of hypocortisolism. She endorses she is not on any hormone replacement therapy though she was prescribed this by integrative medicine last year, hence okay to check cortisol levels otherwise we would have had to kept in mind CBG being increased due to exogenous estrogen use. She is only using vaginal estrogen cre am. She has not had a period for 6 months. We will check FSH, LH, estradiol levels, she is reporting hot flashes, brain fog, fatigue, all consistent with perimenopausal symptoms. She has never had a stroke, heart attack, any history of blood clots. She has a an intact uterus/ovaries. Family history of breast cancer in 2 paternal aunts in 1 maternal grandmother. Given that she is in her 50s, less than 10 years out of menopause, she would be a good candidate for hormone replacement therapy. However given history of breast cancer in relatives, we will have her get evaluated by OBGYN to see if she has increased risk of breast cancer and would need a discussion regarding versus benefits. I did tell her that hormone replacement therapy in 50s has been shown to reduce cardiovascular mortality, improved bone density and help with symptoms of brain fog/fatigue despite being only FDA for hot flashes. She would benefit from a conversation with her OBGYN. Plan: -scheduled appointment with the OBGYN to discuss hormone replacement therapy -check ACTH, cortisol, DHEA-S, FSH, LH, estradiol levels -follow up in 4 weeks to discuss results (3) Loss of height: Code(s): R29.890 - Loss of height Category: Medical Plan: She reports loss of 1-1/2 inches of height. Reports intermittent back pain. She is on 5000 units of vitamin-D. Plan: -ordered x-rays of the spine to evaluate for possible vertebral compression fracture as she has concerns about low bone density though never had a DEXA scan done. (4) Hot flashes: Code(s): R23.2 - Flushing Category: Medical Plan: See above Plan I spent 45 minutes in reviewing the record, seeing the patient and documenting in the medical record. Orders: Orders Adrenocorticotropic Hormone Today E03.9 - Hypothyroidism, unspecified, R53.83 - Other fatigue Aldosterone Today E03.9 - Hypothyroidism, unspecified, R53.83 - Other fatigue Renin Today E03.9 - Hypothyroidism, unspecified, R53.83 - Other fatigue Lutenizing Hormone Today R23.2 - Flushing Cortisol Random Today E03.9 - Hypothyroidism, unspecified, R53.83 - Other fatigue DHEA Sulfate Today E03.9 - Hypothyroidism, unspecified, R53.83 - Other fatigue Basic Metabolic Panel Today E03.9 - Hypothyroidism, unspecified, R53.83 - Other fatigue XR thoracic spine 2V Today R29.890 - Loss of height XR lumbar spine 2-3V Today R29.890 - Loss of height Estradiol Ultra Sensitive Today R23.2 - Flushing Follicle Stimulating Hormone Today R23.2 - Flushing Coding Level of Care Code New Pt Level 4 (65937) Diagnoses Postoperative hypothyroidism E89.0 Hypothyroidism type: postoperative Fatigue, unspecified type R53.83 Fatigue type: unspecified Loss of height R29.890 Hot flashes R23.2 Time Spent (min) 45
== END 2024-02-04 08:35 | disposition home or self-care (01) ==
PROVIDERS: PCP Internal Medicine; Visit Provider Student in an Organized Health Care Education/Training Program
DX: E89.0 Postprocedural hypothyroidism (principal); R53.83 Other fatigue; R29.890 Loss of height; R23.2 Flushing
CPT/HCPCS: 99204

== ENCOUNTER 2024-02-05 09:00 | Outpatient (REF) | payer BC, SELFPAY ==
[2024-02-05 10:22] LABS: Alanine Aminotransferase 18 U/L (0-31); Albumin Level 4.3 g/dL (3.5-5.0); Anion Gap 13 (12-20); Aspartate Amino Transferase 19 U/L (5-31); Bilirubin Total 0.6 mg/dL (0.0-1.0); Blood Urea Nitrogen 19 mg/dL (9-16); Calcium 9.5 mg/dL (8.4-10.2); Carbon Dioxide 23 mmol/L (22-29); Chloride 104 mmol/L (96-108); Estimated Glomerular Filt Rate > 60; Glucose Random 106 mg/dL (60-115); Potassium 4.1 mmol/L (3.3-5.1); Sodium 136 mmol/L (135-145); Total Protein 7.2 g/dL (6.5-8.0)
[2024-02-05 10:41] LABS: Cortisol Random 8.2 ug/dL
[2024-02-05 11:02] LABS: Alkaline Phosphatase 83 U/L (39-117)
[2024-02-05 14:00] LABS: Bilirubin Direct 0.1 mg/dL (0.0-0.5)
[2024-02-07 00:49] LABS: DHEA Sulfate 51 mcg/dL (5-167); Follicle Stimulating Hormone 36.5 mIU/mL; Lutenizing Hormone 20.5 mIU/mL
[2024-02-09 10:44] LABS: Renin 2.49 ng/mL/h (0.25-5.82)
[2024-02-10 13:14] LABS: Adrenocorticotropic Hormone 7 pg/mL (6-50)
[2024-02-12 01:14] LABS: Estradiol Ultra Sensitive 12 pg/mL
== END 2024-02-05 09:01 | disposition home or self-care (01) ==
LOC: HO.LAB 09:00
PROVIDERS: PCP Internal Medicine; Visit Provider Student in an Organized Health Care Education/Training Program
DX: R53.83 Other fatigue (principal); E03.9 Hypothyroidism, unspecified; R23.2 Flushing; R41.3 Other amnesia; R79.89 Other specified abnormal findings of blood chemistry
CPT/HCPCS: 36415; 80048; 80076; 82024; 82088; 82533; 82627; 82670; 83001; 83002; 84244

== ENCOUNTER 2024-04-15 13:41 | Outpatient (AMB) | payer BC, SELFPAY ==
--- NOTE | 2024-04-15 13:47 | A.OFFPC_ITS ---
Vital Signs 04/15/24 13:50 Height 5 ft 2 in BMI Reason not done Patient refused/unable BP 102/76 Blood Pressure Location Lt brachial Position Sitting Pulse 60 Pulse Source Pulse Oximeter Pulse Oximetry (%) 98 Oxygen Delivery Method Room Air Intake Visit Reasons: Possible pink eye Intake Note: Left eye irritated, twitching, crusty in the morning. Had contacts in, thought is was upside down. Concerned about shingles. 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 Required: No Allergies benzocaine topical Allergy (Unknown, Uncoded 04/15/24 13:49) burning skin nuts Allergy (Unknown, Uncoded 04/15/24 13:49) burning skin nuts, peanuts Allergy (Unknown, Uncoded 04/15/24 13:49) anaphylaxis nuts, soy Allergy (Unknown, Uncoded 04/15/24 13:49) gi upset Tobacco use date assessed: 09/03/23 Dental Screening Dental Screen Date: 09/03/23 HPI HPI Comments History of Present Illness Details The patient is a 54 year old female with a past medical history of prediabetes, anxiety, GERD, hyperlipidemia, hypothyroid, elevated LFTs, ASCUS, memory loss presenting for facial & eye discomfort Notes she has been waking up in the morning with both her eyes crusty. Feels l paty the eyes are irritated. No significant redness. Lids, eyelash line feels irritated. The left side of her face around the eye and scalp feel like nerve pain. Worried about shingles. No rash She is having severe menopausal hot flashes. She went to integrative medicine and was prescribed bioidentical hormone replacement. She is not feeling any better on the medication CV: Saw cardiology for increased exertional fatigue, mild shortness of breath. Had stress test. continues follow up. Frequent low blood pressures. BH: 2022. She continues to grieve but doing ok. Her eldest daughter recently graduated from high school. She followed with [facility] and has now transferred to a community therapist, more recently at consultation with psychiatry at [facility] (see above). Was on citalopram but intolerant side effects. Was on armodafinil for significant fatigue-had chest pain with this medication. Had more energy with adderall but worried that worsening memory so stopped. Was taking seroquel at night. She is troubled by ongoing memory changes. Worse over the past six months. Children tell her they are repeating themselves. She is not remembering things that happened in the last day, week. Feels like she has to concentrate on concentrating. She was seen for this previously. Did have an MRI-this showed microvascular disease. Dad had parkinsons, memory problems. She was evaluated by the memory clinic and diagnosed with MDD. Medicatioin review completed-venlafaxaine recommended (to be prescribed by PCP) History of prediabetes-continues to work out regularly, eat healthy. She was taking mounjaro with good effect Hypothyroid: TSH has been within goal on levothyroxine. History of left partial thyroidectomy. Was previously hyperthyroid Urogyn: Follows with urogyn. History of abnormal menses. Denia/menopausal. GERD: Stable. Saw [facility]. On pepcid omeprazole Mammo UTD, pap UTD. Had colonoscopy 10/2020. LMP in July [address] Freeman retired. hasnt seem them recently. ROS CONSTITUTIONAL: Denies weight loss, fever and chills. HEENT: Denies changes in vision and hearing. RESPIRATORY: Denies SOB and cough. CV: Denies palpitations and CP GI: Denies abdominal pain, nausea, vomiting and diarrhea. : Denies dysuria and urinary frequency. MSK: Denies new myalgia and joint pain. SKIN: Denies rash and pruritus. NEUROLOGICAL: Denies headache PSYCHIATRIC: Denies recent changes in mood. PHYSICAL EXAM: GENERAL: Alert and oriented x 3. NAD EYES: EOMI. Anicteric. HENT: Moist mucous membranes. No scleral icterus. No cervical lymphadenopathy. LUNGS: Clear to auscultation bilaterally. CARDIOVASCULAR: Regular rate and rhythm. No murmur. No JVD. ABDOMEN: Soft, non-tender +bs EXTREMITIES: No edema. Non-tender. SKIN: No rashes or lesions. Warm. NEUROLOGIC: No focal neurological deficits. CN II-XII grossly intact PSYCHIATRIC: Cooperative. Appropriate mood and affect [facility] Medical History Loss of height Right ankle pain Prediabetes Obesity, Class I, BMI 30-34.9 Lumbar radiculopathy Low back pain Hypothyroidism Elevated LFTs Depression Anxiety Surgical History H/O abdominoplasty Family History Father Parkinson disease Mother No problems noted. 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 Current occupational exposures/hazards: Yes (around blood ) Cognitive needs: No Hearing needs: No Vision needs: No Physical exam (Primary Care) Vital Signs: Last Vital Signs Pulse 60 04/15/24 13:50 BP 102/76 04/15/24 13:50 Pulse Ox 98 04/15/24 13:50 Oxygen Delivery Method Room Air 04/15/24 13:50 Tobacco/Smoking Status: Tobacco use Status Tobacco use date assessed 09/03/23 04/15/24 13:57 Patient Tobacco Use Status Former Tobacco user 04/15/24 13:57 e-Cigarette/Vaping Use Never Used 04/15/24 13:57 Coding Level of Care Code Est Pt Level 4 (12936) Diagnoses Blepharitis of both eyes, unspecified eyelid, unspecified type H01.003; H01.006 Blepharitis type: unspecified type Eyelid: unspecified eyelid Laterality: bilateral Assessment & Plan Assessment & Plan (1) Blepharitis: Code(s): H01.009 - Unspecified blepharitis unspecified eye, unspecified eyelid Category: Medical Qualifiers: Blepharitis type: unspecified type Eyelid: unspecified eyelid Laterality: bilateral Qualified Code(s): H01.003 - Unspecified blepharitis right eye, unspecified eyelid; H01.006 - Unspecified blepharitis left eye, unspecified eyelid Plan: She will try antibacterial drops. Could be an allergic component. Discussed the possibility the left sided facial discomfort could be impeding shingles. She may start the valtrex if she chooses. She has used the medicaiton in the past Orders: Orders AMB Rapid Flu 04/15/24 Z13.9 - Encounter for screening, unspecified Medications: New valacyclovir (Valtrex) 1,000 mg PO BID 14 tabs 0RF 7 days neomycin-polymyxin B-dexameth 3.5mg/mL-10,000 unit/mL-0.1 % 1 drp ophthalmic (eye) Q6H 5 mL 0RF 10 days fbzzrvzg-[id number]-WU 3.5-10,000-10 mg-unit-mg/mL 1 drp ophthalmic (eye) Q4H 7.5 mL 0RF 7 days
[2024-04-15 13:50] VITALS: BP 102/76; PULSE 60; O2SAT 98
== END 2024-04-15 14:08 | disposition home or self-care (01) ==
PROVIDERS: PCP Internal Medicine; Visit Provider Internal Medicine
DX: H01.003 Unspecified blepharitis right eye, unspecified eyelid (principal); H01.006 Unspecified blepharitis left eye, unspecified eyelid

== ENCOUNTER → 2024-04-15 13:41 | Outpatient (BNVA) | payer BC, SELFPAY | PROVIDERS: PCP Internal Medicine; Visit Provider Internal Medicine ==

== ENCOUNTER 2024-06-30 09:14 | Outpatient (AMB) | payer BC, SELFPAY ==
--- NOTE | 2024-06-30 09:21 | A.OFFPC_ITS ---
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: No Is last menstrual period known: No Post menopausal: No Patient : No Allergies benzocaine topical Allergy (Unknown, Uncoded 04/15/24 13:49) burning skin nuts Allergy (Unknown, Uncoded 04/15/24 13:49) burning skin nuts, peanuts Allergy (Unknown, Uncoded 04/15/24 13:49) anaphylaxis nuts, soy Allergy (Unknown, Uncoded 04/15/24 13:49) gi upset Tobacco use date assessed: 06/30/24 Dental Screening Dental Screen Date: 06/30/24 Did you have a dental visit in the last 12 months?: Yes Did you have a dental problem in the last 6 months where you did not have access to dental care?: No Was dental information given to patient?: Patient has dentist HPI HPI Comments History of Present Illness Details The patient is a 54 year old female with a past medical history of prediabetes, anxiety, GERD, hyperlipidemia, hypothyroid, elevated LFTs, ASCUS, memory loss presenting for facial & eye discomfort Chronic EBV. She has chronic fatigue, muscle pain, neuralgia. Follows with [facility]. Lab testing per patient with EBV testing ~60,000. She has been taking lysine. She is worried she may go on to develop MS as she has family history and has had increasing symptoms and increasing difficulties with balance She is having severe menopausal hot flashes. She went to integrative medicine and was prescribed bioidentical hormone replacement. She did not feeling any better on the medication and stopped worrying this may be worsening her EBV CV: Saw cardiology for increased exertional fatigue, mild shortness of breath. Had stress test. continues follow up. Frequent low blood pressures. BH: 2022. She continues to grieve but doing ok. Her eldest daughter recently graduated from high school. She followed with [facility] and has now transferred to a community therapist, more recently at consultation with psychiatry at [facility] (see above). Was on citalopram but intolerant side effects. Was on armodafinil for significant fatigue-had chest pain with this medication. Had more energy with adderall but worried that worsening memory so stopped. Was taking seroquel at night. She is troubled by ongoing memory changes. Worse over the past six months. Children tell her they are repeating themselves. She is not remembering things that happened in the last day, week. Feels like she has to concentrate on concentrating. She was seen for this previously. Did have an MRI-this showed microvascular disease. Dad had parkinsons, memory problems. She was evaluated by the memory clinic and diagnosed with MDD. She knows she still grieves but can differentiate this from her symptoms History of prediabetes-continues to work out regularly, eat healthy. She took mounjaro with good effect previously Hypothyroid: TSH has been within goal on levothyroxine. History of left partial thyroidectomy. Was previously hyperthyroid Urogyn: Follows with urogyn. History of abnormal menses. Denia/menopausal. GERD: Stable. Saw [facility]. On pepcid omeprazole Mammo UTD, pap UTD. Had colonoscopy 10/2020. LMP in July [address] Freeman retired. hasnt seem them recently. ROS see HPI PHYSICAL EXAM: GENERAL: Alert and oriented x 3. NAD EYES: EOMI. Anicteric. HENT: Moist mucous membranes. No scleral icterus. No cervical lymphadenopathy. LUNGS: Clear to auscultation bilaterally. CARDIOVASCULAR: Regular rate and rhythm. No murmur. No JVD. ABDOMEN: Soft, non-tender +bs EXTREMITIES: No edema. Non-tender. SKIN: No rashes or lesions. Warm. NEUROLOGIC: No focal neurological deficits. CN II-XII grossly intact PSYCHIATRIC: Cooperative. Appropriate mood and affect [facility] Medical History Loss of height Right ankle pain Prediabetes Obesity, Class I, BMI 30-34.9 Lumbar radiculopathy Low back pain Hypothyroidism Elevated LFTs Depression Anxiety Surgical History H/O abdominoplasty Family History Father Parkinson disease Mother No problems noted. 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 Current occupational exposures/hazards: Yes (around blood ) Cognitive needs: No Hearing needs: No Vision needs: No Physical exam (Primary Care) Vital Signs: Last Vital Signs Temp 98.0 F 06/30/24 09:26 Pulse 93 06/30/24 09:26 Resp 16 06/30/24 09:26 BP 113/62 06/30/24 09:26 Pulse Ox 97 06/30/24 09:26 Oxygen Delivery Method Room Air 06/30/24 09:26 BMI result Body Mass Index 32.6 Tobacco/Smoking Status: Tobacco use Status Tobacco use date assessed 06/30/24 06/30/24 09:28 Patient Tobacco Use Status Former Tobacco user 06/30/24 09:28 e-Cigarette/Vaping Use Never Used 06/30/24 09:28 Coding Level of Care Code Est Pt Level 4 (67793) Diagnoses Chronic EBV infection B27.90 Chronic fatigue R53.82 Gait difficulty R26.9 Assessment & Plan Assessment & Plan (1) Chronic EBV infection: Code(s): B27.90 - Infectious mononucleosis, unspecified without complication Category: Medical (2) Chronic fatigue: Code(s): R53.82 - Chronic fatigue, unspecified Category: Medical (3) Gait difficulty: Code(s): R26.9 - Unspecified abnormalities of gait and mobility Category: Medical Plan Advised to collect labs notes from integrative medicine. Referral placed to EBV specialist, neurology She does feel her depression/grief is well controlled and the fatigue, muscle pain and neuralgia are happening separate from that Orders: Referrals Neurology Referral B27.90 - Infectious mononucleosis, unspecified without complication, M79.2 - Neuralgia and neuritis, unspecified, R20.0 - Anesthesia of skin, R20.2 - Paresthesia of skin, R26.9 - Unspecified abnormalities of gait and mobility, R53.82 - Chronic fatigue, unspecified Infectious Disease Referral B27.90 - Infectious mononucleosis, unspecified without complication
[2024-06-30 09:26] VITALS: BP 113/62; PULSE 93; RESP 16; TEMP 36.7; O2SAT 97; BMI 32.6
--- OUTSIDE RECORDS SUMMARY | 2024-06-30 10:15 | XMS_ITS | Clinical Summary ---
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 03/16/2020 Active levothyroxine (Synthroid) 50 mcg tablet Take 1 Tab by mouth daily. 01/20/2020 Active albuterol HFA (PROAIR HFA ; PROVENTIL HFA ; VENTOLIN HFA) 90 mcg/actuation inhaler Inhale 2 Puffs into the lungs every 4 hours as needed for Cough or Wheezing. 03/03/2019 Active Active Problems Problem Noted Date Diagnosed Date Hypothyroidism 05/01/2024 Overview (05/01/2024): 2008 S/p partial thyroidectomy Mild intermittent asthma 05/01/2024 Elevated serum creatinine 04/29/2020 CKD (chronic kidney disease), stage III 02/26/20 20 Lipidemia 02/26/2020 Prediabetes 02/26/2020 Fatty liver 04/22/2018 Vitamin D deficiency 04/12/2018 Surgical History Surgery Date Site/Laterality Comments OTHER SURGICAL HISTORY 2004 PROCEDURE: ---- OTHER ----; COMMENT: uterine polyp removed VARICOSE VEIN SURGERY 03/07/2016 Bilateral PROCEDURE: DE LIGJ DIVJ &/EXCJ VARICOSE VEIN CLUSTER 1 LEG; COMMENT: laser ablation (RLE); 03/10/2016 (Right) phlebectomy OTHER SURGICAL HISTORY 05/08/2008 Right PROCEDURE: HISTORICAL SUBTOTAL THYROIDECTOMY UPPER GASTROINTESTINAL ENDOSCOPY 05/29/2011 PROCEDURE: DE UPPER GI ENDOSCOPY PERFORMED; COMMENT: GERD BREAST BIOPSY 05/14/2013 Left PROCEDURE: BX BREAST; PERC NEEDLE CORE W/IMAG GUID; COMMENT: 2 breast nodules UPPER GASTROINTESTINAL ENDOSCOPY 02/24/2008 PROCEDURE: DE UPPER GI ENDOSCOPY PERFORMED; COMMENT: small hiatal hernia, otherwise normal Medical History Medical History Date Comments Hypothyroidism DX:Hypothyroidis m; COMMENT: 2008 S/p partial thyroidectomy Mild intermittent asthma DX:Mild intermittent asthma Fatty liver 04/22/2018 DX:Fatty liver History of gestational diabetes DX:History of gestational diabetes BRCA negative 04/22/2018 DX:BRCA negative ; COMMENT: 2017 mammogram normal; 2013 left breast biopsy-negative; First degree relatives with breast cancer; follows [facility] Vitamin D deficiency 04/12/2018 DX:Vitamin D deficiency History of kidney stones 04/22/2018 DX:Hist ory of kidney stones History of gastroesophageal reflux (GERD) 04/22/2018 DX:History of gastroesophage al reflux (GERD) Family History Medical History Relation Name Comments Parkinson's Disease Father Breast cancer Father's side age 42 and 53 , two aunts Multiple sclerosis Maternal Grandfather Other: breast cancer Maternal Grandmother over 45 No Known Problems Mother Breast cancer Other paternal cousin Coronary artery disease Paternal Grandfather Relation Name Status Comments Brother Daughter 1 Alive Daughter 2 Alive Father Father's side Maternal Grandfather Maternal Grandmother Mother Alive Other paternal Alive Paternal Grandfather Paternal Grandmother (Age 100) Sister Alive Social History Tobacco Use Types Packs/Day Years Used Date Smoking Tobacco: Former Smokeless Tobacco: Never Alcohol Use Standard Drinks/Week Comments Yes 0 (1 standard drink = 0.6 oz pur e alcohol) Comments Unknown Sex and Gender Information Value Date Recorded Sex Assigned at Not on file Legal Sex Female 12:16 PM EST Gender Identity Not on file Sexual Orientation Not on file Obstetrics History Plan of Treatment Upcoming Encounters Date Type Department Care Team ([facility] st Contact Info) Description 07/03/2024 2:00 PM EDT Office Visit [address] [phone] Mayelin Alegria MD [address] [place] [address] [address] [place] [address] Health Maintenance Due Date Last Done Comments COVID-19 Vaccine (#1) 1975 DTaP,Tdap,and Td Vaccines (1 - Tdap) 1989 Hepatitis B Vaccines (1 of 3 - 19+ 3-dose series) 1989 Pneumococcal Vaccine: 50+ Years (1 of 2 - PCV) 1989 Pneumococcal Vaccine: Pediatrics (0 to 5 Years) and At-Risk Patients (6 to 64 Years) (1 of 2 - PCV) 1989 Cervical Cancer Screening: Pap Smear 1991 Zoster Vaccines (1 of 2) 2020 Colorectal Cancer Screening: Colonoscopy 02/21/2022 Depression Screening 02/21/2022 HIV Screening 02/21/2022 Hepatitis C Screening 02/21/2022 Social Influencers of Health Screening 02/21/2022 Breast Cancer Screening 09/06/2023 09/06/19, 02/13/2020, 01/02/2019, Additional history exists Influenza Vaccine (Season Ended) 2024 Cholesterol Screening (Lipid Panel) 02/17/2025 02/18/2020 HIB Vaccines Aged Out No longer eligi ble based on patient's age to complete this topic HPV Vaccines Aged Out No longer eligi ble based on patient's age to complete this topic Hepatitis A Vaccines Aged Out No long er eligible based on patient's age to complete this topic IPV Vaccines Aged Out No longer eligi ble based on patient's age to complete this topic MMR Vaccines Aged Out No longer eligi ble based on patient's age to complete this topic Meningococcal ACWY Vaccine Aged Out N o longer eligible based on patient's age to complete this topic Meningococcal B Vacine Aged Out No lo nger eligible based on patient's age to complete this topic RSV Immunization Patients Under 20 months Aged Out No longer eligible based on patient's age to complete this topic Varicella Vaccines Aged Out No longer eligible based on patient's age to complete this topic Procedures Procedure Name Priority Date/Time Associated Diagnosis Comments BARBARA SCREENING DIGITAL Routine 09/05/2021 12:14 PM EDT Encounter for screening mammogram for malignant neoplasm of breast LIPID PANEL Routine 02/18/2020 from Last 3 Months or Most Recently Relevant to Health Maintenance Results * BARBARA SCREENING DIGITAL (09/05/2021 12:14 PM EDT) Anatomical Region Laterality Modality Mammography 09/05/2021 7:55 AM EDT Narrative 09/05/2021 12:14 PM EDT [facility] Diagnostic Imaging Department [address] [place], [place] [id number] Patient: ??SAGAR STEIN ?/Age/Sex: 1970 - 51 - F Unit#: ??[id number] ? Location/Status: ??SPDIMAM/REG CLI ? Mnemonic/Ordering Site: ??DIGSC/SPMAM Ordering Physician: ??KATIA GUERRIER MD Barbara Screening Digital - 09/05/21826 EXAM: Barbara Screening Digital EXAM DATE AND TIME: 09/05/2021 8:27 AM HISTORY: ??Screening. Excisional biopsy of the left breast in 2020, pathology benign (myxoid fibroadenoma). Earlier bilateral breast biopsies, pathology benign. Family history of breast carcinoma including 2 paternal aunts and maternal grandmother. COMPARISON: ??02/13/20, 01/02/19, 12/27/17, 02/17/15 TECHNIQUE: CC and MLO views of both breasts were obtained using full field digital mammography. Bilateral digital breast tomosynthesis was performed in the MLO projection. Computer aided detection with the CrossFiber.2-H was employed. TISSUE DENSITY: b. There are scattered areas of fibroglandular density. FINDINGS: The parenchymal pattern remains nodular. Mild architectural distortion is now seen in the upper outer left breast, middle depth, with a skin scar overlying, consistent with the excisional biopsy procedure. Biopsy markers are again seen bilaterally. No suspicious masses or grouped microcalcifications are seen. The skin and vascularity are unremarkable. IMPRESSION: No mammographic evidence of malignancy is seen. A negative mammogram in the presence of a clinically suspicious palpable abnormality does not preclude the possibility of malignancy or alter the indications for biopsy. BI-RADS: ??Category 2: Benign RECOMMENDATION(S): 1: Routine screening mammogram BILATERAL in 1 year. [address]4688, 26842 3342F, 7025F Dictating Physician: ??ROSEANN PILLAI MD Electronically Signed by: ??ROSEANN PILLAI MD Dic Date/Time: ??09/05/21 1212 Sign date/Time: ??09/05/21 1214 Procedure Note Roseann Pillai MD - 03/15/2022 [facility] Diagnostic Imaging Department [address] [place], [place] [id number] Patient: DALIA COLLINSSAGAR /Age/Sex: 1970 - 51 -F Unit#: [id number] Location/Status: [facility]/REG I Mnemonic/Ordering Site: [facility] Ordering Physician: KATIA GUERRIER MD [facility] Screening Digital - 09/05/21 - 826 EXAM: [facility] Screening Digital EXAM DATE AND TIME: 09/05/2021 8:27 AM HISTORY: Screening. Excisional biopsy of the left breast in 2020,pathology benign (myxoid fibroadenoma). Earlier bilateral breast biopsies,pathology benign. Family history of breast carcinoma including 2 paternal auntsand maternal grandmother. COMPARISON: 02/13/20, 01/02/19, 12/27/17, 02/17/15 TECHNIQUE: CC and MLO views of both breasts were obtained using fullfield digital mammography. Bilateral digital breast tomosynthesis was performedin the MLO projection. Computer aided detection with the Digital Vault 7.2-ScoreStreakas employed. TISSUE DENSITY: b. There are scattered areas of fibroglandular density. FINDINGS: The parenchymal pattern remains nodular. Mild architectural distortion isnow seen in the upper outer left breast, middle depth, with a skin scaroverlying, consistent with the excisional biopsy procedure. Biopsy markers are againseen bilaterally. No suspicious masses or grouped microcalcifications are seen. The skin and vascularity are unremarkable. IMPRESSION: No mammographic evidence of malignancy is seen. A negative mammogram in the presence of a clinically suspicious palpable abnormality does not preclude the possibility of malignancy or alter the indications for biopsy. BI-RADS: Category 2: Benign RECOMMENDATION(S): 1: Routine screening mammogram BILATERAL in 1 year. 95511, 27836 3342F, 7025F Dictating Physician: ROSEANN PILLAI MD Electronically Signed by: ROSEANN PILLAI MD Dic Date/Time: 09/05/21 1212 Sign date/Time: 09/05/21 1214 Katia Guerrier MD IMG BI PROCEDURES Final Result * (ABNORMAL) Lipid panel (02/18/2020) LDL/HDL Ratio 4 0 - 4 Triglycerides 191(A) 0 - 150 mg/dL Cholesterol 236(A) 0 - 200 mg/dL HDL 54 >=40 mg/dL LDL Cholesterol 144(A) 0 - 100 mg/dL Blood Venous blood specimen / Unknown Historical Provider LAB BLOOD ORDERABLES Preethi casarez Result from Last 3 Months or Most Recently Relevant to Health Maintenance Insurance [facility] Care Teams Batch Roller Operator Relationship Specialty Start Date End Date Katia Guerrier MD PCP - General Endocrinology 04/30/24
== END 2024-06-30 09:58 | disposition home or self-care (01) ==
LOC: HO.HMCFM 09:14
PROVIDERS: PCP Internal Medicine; Visit Provider Internal Medicine
DX: B27.90 Infectious mononucleosis, unspecified without complication (principal); R53.82 Chronic fatigue, unspecified; R26.9 Unspecified abnormalities of gait and mobility

== ENCOUNTER 2024-07-21 13:44 | Outpatient (AMB) | payer BC, SELFPAY ==
--- NOTE | 2024-07-21 13:54 | MHC.PC.OV ---
Vital Signs 07/21/24 13:57 Height 5 ft 3 in Weight 187 lb BMI 33.1 BP 114/76 Blood Pressure Location Rt brachial Position Sitting Respiration 14 Pulse 86 Pulse Source Pulse Oximeter Pulse Oximetry (%) 96 Oxygen Delivery Method Room Air Intake Visit Reasons: 4 months CPE Intake Note: Physical. Having IBS symtoms. Bouts of diarrhea and constiopation frequency, about every day. Enterprise Application Architect Required: No Allergies benzocaine topical Allergy (Unknown, Uncoded 07/21/24 13:56) burning skin nuts Allergy (Unknown, Uncoded 07/21/24 13:56) burning skin nuts, peanuts Allergy (Unknown, Uncoded 07/21/24 13:56) anaphylaxis nuts, soy Allergy (Unknown, Uncoded 07/21/24 13:56) gi upset Tobacco use date assessed: 06/30/24 Dental Screening Dental Screen Date: 06/30/24 HPI HPI Comments History of Present Illness Details The patient is a 54 year old female with a past medical history of prediabetes, anxiety, GERD, hyperlipidemia, hypothyroid, elevated LFTs, ASCUS, memory loss presenting for CPE Chronic EBV. She has chronic fatigue, muscle pain, neuralgia-left scalp, face and left torso, extremity. Was seeing [facility]. Lab testing per patient with EBV testing ~60,000. She has been taking lysine. She is worried she may go on to develop MS as she has family history and has had increasing symptoms and increasing difficulties with balance. She is having severe menopausal hot flashes. She went to integrative medicine and was prescribed bioidentical hormone replacement. She did not feeling any better on the medication and stopped worrying this may be worsening her EBV. She is trying to schedule with career development associate as hers left [employer]. CV: Saw cardiology for increased exertional fatigue, mild shortness of breath. Had stress test. continues follow up-[facility]. Frequent low blood pressures. BH: 2022. She continues to grieve but doing ok. Her eldest daughter recently graduated from high school. She followed with [facility] and has now transferred to a community therapist, more recently at consultation with psychiatry at [facility] (see above). Was on citalopram but intolerant side effects. Was on armodafinil for significant fatigue-had chest pain with this medication. Had more energy with adderall but worried that worsening memory so stopped. Was taking seroquel at night. She is troubled by ongoing memory changes. Worse over the past six months. Children tell her they are repeating themselves. She is not remembering things that happened in the last day, week. Feels like she has to concentrate on concentrating. She was seen for this previously. Did have an MRI-this showed microvascular disease. Dad had parkinsons, memory problems. She was evaluated by the memory clinic and diagnosed with MDD. She knows she still grieves but can differentiate this from her symptoms History of prediabetes-continues to work out regularly, eat healthy. She took mounjaro with good effect previously Hypothyroid: TSH has been within goal on levothyroxine. History of left partial thyroidectomy. Was previously hyperthyroid Urogyn: Has seen urogyn. History of abnormal menses. Denia/menopausal. GERD: Stable. Saw GI-BN. On pepcid omeprazole Mammo UTD, pap UTD. Had colonoscopy 10/2020. LMP in July 2023 ROS see HPI PHYSICAL EXAM: GENERAL: Alert and oriented x 3. NAD EYES: EOMI. Anicteric. HENT: Moist mucous membranes. No scleral icterus. No cervical lymphadenopathy. LUNGS: Clear to auscultation bilaterally. CARDIOVASCULAR: Regular rate and rhythm. No murmur. No JVD. ABDOMEN: Soft, non-tender +bs EXTREMITIES: No edema. Non-tender. SKIN: No rashes or lesions. Warm. NEUROLOGIC: No focal neurological deficits. CN II-XII grossly intact PSYCHIATRIC: Cooperative. Appropriate mood and affect [facility] Medical History Loss of height Right ankle pain Prediabetes Obesity, Class I, BMI 30-34.9 Lumbar radiculopathy Low back pain Hypothyroidism Elevated LFTs Depression Anxiety Surgical History H/O abdominoplasty Family History Father Parkinson disease Mother No problems noted. 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 Current occupational exposures/hazards: Yes (around blood ) Cognitive needs: No Hearing needs: No Vision needs: No Physical exam (Primary Care) Vital Signs: Last Vital Signs Pulse 86 07/21/24 13:57 Resp 14 07/21/24 13:57 BP 114/76 07/21/24 13:57 Pulse Ox 96 07/21/24 13:57 Oxygen Delivery Method Room Air 07/21/24 13:57 BMI result Body Mass Index 33.1 Tobacco/Smoking Status: Tobacco use Status Tobacco use date assessed 06/30/24 07/21/24 14:01 Patient Tobacco Use Status Former Tobacco user 07/21/24 14:01 e-Cigarette/Vaping Use Never Used 07/21/24 14:01 Coding Level of Care Code Est Pt Prev Care 40-64y(80081) Diagnoses Physical exam Z00.00 Chronic fatigue R53.82 Chronic EBV infection B27.90 Exertional dyspnea R06.09 Hot flashes R23.2 Neuralgia M79.2 Assessment & Plan Assessment & Plan (1) Physical exam: Code(s): Z00.00 - Encounter for general adult medical examination without abnormal findings Category: Medical (2) Chronic fatigue: Code(s): R53.82 - Chronic fatigue, unspecified Category: Medical (3) Chronic EBV infection: Code(s): B27.90 - Infectious mononucleosis, unspecified without complication Category: Medical (4) Exertional dyspnea: Code(s): R06.09 - Other forms of dyspnea Category: Medical (5) Hot flashes: Code(s): R23.2 - Flushing Category: Medical (6) Neuralgia: Code(s): M79.2 - Neuralgia and neuritis, unspecified Category: Medical Plan CPE-preventive measures for age UTD. Chronic EBV-new referral placed for ID, immunology Labs ordered Hypothyroid-stable on levothyroxine Orders: Orders EBV DNA QL PCR Today B27.90 - Infectious mononucleosis, unspecified without complication, J31.2 - Chronic pharyngitis, R20.0 - Anesthesia of skin, R20.2 - Paresthesia of skin, R53.82 - Chronic fatigue, unspecified, R73.03 - Prediabetes Erythrocyte Sedimentation Rate Today B27.90 - Infectious mononucleosis, unspecified without complication, J31.2 - Chronic pharyngitis, R20.0 - Anesthesia of skin, R20.2 - Paresthesia of skin, R53.82 - Chronic fatigue, unspecified, R73.03 - Prediabetes CRP High Sensitivity Today B27.90 - Infectious mononucleosis, unspecified without complication, J31.2 - Chronic pharyngitis, R20.0 - Anesthesia of skin, R20.2 - Paresthesia of skin, R53.82 - Chronic fatigue, unspecified, R73.03 - Prediabetes Complete Blood Count Auto Diff Today B27.90 - Infectious mononucleosis, unspecified without complication, J31.2 - Chronic pharyngitis, R20.0 - Anesthesia of skin, R20.2 - Paresthesia of skin, R53.82 - Chronic fatigue, unspecified, R73.03 - Prediabetes Comprehensive Met. Panel Today B27.90 - Infectious mononucleosis, unspecified without complication, J31.2 - Chronic pharyngitis, R20.0 - Anesthesia of skin, R20.2 - Paresthesia of skin, R53.82 - Chronic fatigue, unspecified, R73.03 - Prediabetes Lipid Panel Today B27.90 - Infectious mononucleosis, unspecified without complication, J31.2 - Chronic pharyngitis, R20.0 - Anesthesia of skin, R20.2 - Paresthesia of skin, R53.82 - Chronic fatigue, unspecified, R73.03 - Prediabetes UA CC w/rflx Micro + Cult Today R53.82 - Chronic fatigue, unspecified, Z13.228 - Encounter for screening for other metabolic disorders Vitamin D 25-OH (D2 and D3) Today E89.0 - Postprocedural hypothyroidism, J31.2 - Chronic pharyngitis, R53.82 - Chronic fatigue, unspecified, R73.03 - Prediabetes, R79.89 - Other specified abnormal findings of blood chemistry Vitamin B12 and Folate Today E89.0 - Postprocedural hypothyroidism, J31.2 - Chronic pharyngitis, R53.82 - Chronic fatigue, unspecified, R73.03 - Prediabetes, R79.89 - Other specified abnormal findings of blood chemistry Hemoglobin A1c Today E89.0 - Postprocedural hypothyroidism, J31.2 - Chronic pharyngitis, R53.82 - Chronic fatigue, unspecified, R73.03 - Prediabetes, R79.89 - Other specified abnormal findings of blood chemistry IRON PROFILE Today R53.82 - Chronic fatigue, unspecified TSH reflex Free T4 Today B27.90 - Infectious mononucleosis, unspecified without complication, J31.2 - Chronic pharyngitis, R20.0 - Anesthesia of skin, R20.2 - Paresthesia of skin, R53.82 - Chronic fatigue, unspecified, R73.03 - Prediabetes Vitamin B1 Today E89.0 - Postprocedural hypothyroidism, J31.2 - Chronic pharyngitis, R53.82 - Chronic fatigue, unspecified, R73.03 - Prediabetes, R79.89 - Other specified abnormal findings of blood chemistry Ferritin Today R53.82 - Chronic fatigue, unspecified Referrals Infectious Disease Referral B27.90 - Infectious mononucleosis, unspecified without complication Allergy & Immunology Referral B27.90 - Infectious mononucleosis, unspecified without complication, J31.2 - Chronic pharyngitis
[2024-07-21 13:57] VITALS: BP 114/76; PULSE 86; RESP 14; O2SAT 96; BMI 33.1
--- OUTSIDE RECORDS SUMMARY | 2024-07-21 16:28 | XMS_ITS | Clinical Summary ---
Author Organization [facility] [address] [place] [address] [place] [phone] Phone Care Team Providers Care Sexual Assault Social Worker Name Role Phone Katia Guerrier MD Primary Care Provider [phone] Allergies Active Allergy Reactions Criticality Noted Date [...] Elevated serum creatinine 04/29/2020 CKD (chronic kidney disease) , stage III (CMS/HCC V24, CMS/HCC V28) 02/26/2020 Lipidemia 02/26/2020 Prediabetes 02/26/2020 Fatty liver 04/22/2018 Vitamin D deficiency 04/12/2018 Encounters Date Type Department Care Team Description 07/03/2024 2:00 PM EDT Office Visit Urogynecology - [place] [address] [place] [address] Mayelin Alegria MD Stress incontinence (Primary Dx); OAB (overactive bladder); Urge urinary incontinence; Female cystocele from Last 3 Months Surgical History Surgery Date Site/Laterality Comments OTHER SURGICAL HISTORY 2004 PROCEDURE: ---- OTHER ----; COMMENT: uterine polyp removed VARICOSE VEIN SURGERY 03/07/2016 Bilateral PROCEDURE: NM LIGJ DIVJ &/EXCJ VARICOSE VEIN CLUSTER 1 LEG; COMMENT: laser ablation (RLE); 03/10/2016 (Right) phlebectomy OTHER SURGICAL HISTORY 05/08/2008 Right PROCEDURE: HISTORICAL SUBTOTAL THYROIDECTOMY UPPER GASTROINTESTINAL ENDOSCOPY 05/29/2011 PROCEDURE: NM UPPER GI ENDOSCOPY PERFORMED; COMMENT: GERD BREAST BIOPSY 05/14/2013 Left PROCEDURE: BX BREAST; PERC NEEDLE CORE W/IMAG GUID; COMMENT: 2 breast nodules UPPER GASTROINTESTINAL ENDOSCOPY 02/24/2008 PROCEDURE: NM UPPER GI ENDOSCOPY PERFORMED; COMMENT: small hiatal hernia, otherwise normal LIPECTOMY Panniculectomy, Rectus diastasis repair. Medical History Medical History Date Comments Hypothyroidism DX:Hypothyroidis m; COMMENT: 2008 S/p partial thyroidectomy Mild intermittent asthma DX:Mild intermittent asthma Fatty liver 04/22/2018 DX:Fatty liver History of gestational diabetes DX:History of gestational diabetes BRCA negative 04/22/2018 DX:BRCA negative ; COMMENT: 2017 mammogram normal; 2013 left breast biopsy-negative; First degree relatives with breast cancer; follows [facility] Vitamin D deficiency 04/12/2018 DX:Vitamin [...] Date Smoking Tobacco: Former Smokeless Tobacco: Never Tobacco Cessation:Counseling Given: Not Answered Alcohol Use Standard Drinks/Week Comments Yes 0 (1 standard drink = 0.6 oz pur e alcohol) Comments Unknown Sex and Gender Information Value Date Recorded Sex Assigned at Not on file Legal Sex Female 12:16 PM EST Gender Identity Not on file Sexual Orientation Not on file Obstetrics History Last Filed Vital Signs Vital Sign Reading Time Taken Comments Blood Pressure 114/84 07/03/2024 1:59 PM EDT Pulse 79 07/03/2024 1:59 PM EDT Temperature - - Respiratory Rate - - Oxygen Saturation - - Inhaled Oxygen Concentration - - Weight 83.5 kg (184 lb) 07/03/2024 1:59 PM EDT Height 160 cm (5' 3 ) 07/03/2024 1:59 PM EDT Body Mass Index 32.59 07/03/2024 1:59 PM EDT Plan of Treatment Health Maintenance Due Date Last Done Comments [...] Health Screening 02/21/2022 Breast Cancer Screening 09/06/2023 09/06/19 22, 02/13/2020, 01/02/2019, Additional history exists Influenza Vaccine [...] age to complete this topic Meningococcal B Vaccine Aged Out No l onger eligible based on patient's age to complete this topic RSV Immunization Patients Under 20 months Aged Out No longer eligible based on patient's age to complete this topic Varicella Vaccines Aged Out No longer eligible based on patient's age to complete this topic Procedures Procedure Name Priority Date/Time Associated Diagnosis Comments POC URINE AUTO W/O MICRO Routine 07/03/2024 3:01 PM EDT OAB (overactive bladder) [facility] SCREENING DIGITAL Routine 09/05/2021 12:14 PM EDT Encounter for screening mammogram for malignant neoplasm of breast LIPID PANEL Routine 02/18/2020 from Last 3 Months or Most Recently Relevant to Health Maintenance Results * (ABNORMAL) POC Urine Auto W/O Micro (07/03/2024 3:01 PM EDT) Glucose UA POC Negative Negative, Trace mg/dL Bilirubin UA POC Negative Negative, Small Ketones UA POC Negative Negative, Trace Specific [place] UA POC 1.015 Blood UA POC Trace - Intact(A) Negative, Large PH UA POC 5.5 Protein UA POC Negative Negative, >=300 mg/dL Urobilinogen UA POC 0.2 E.U./dL mg/dL Nitrite UA POC Negative Negative Leukocytes UA POC Negative Negative Urine Urine specimen obtained by clean catch procedure / Unknown 07/03/2024 3:01 PM EDT us Mayelin Alegria MD POINT OF CARE TEST ENTER/EDIT O RDERABLES Final Result * [facility] SCREENING DIGITAL (09/05/2021 12:14 PM EDT) Anatomical Region Laterality Modality Mammography 09/05/2021 7:55 AM EDT Narrative 09/05/2021 12:14 PM EDT [facility] Diagnostic Imaging Department [address] [place] [address] Patient: ??SAGAR STEIN ?/Age/Sex: 1970 - 51 - F Unit#: ??[id number] ? Location/Status: ??SPDIMAM/REG CLI ? Mnemonic/Ordering Site: ??DIGSC/SPMAM Ordering Physician: ??KATIA GUERRIER MD [facility] Screening Digital - 09/05/21826 EXAM: [facility] Screening Digital EXAM DATE AND TIME: 09/05/2021 [...] MLO projection. 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 TISSUE DENSITY: b. There are [...] Routine screening mammogram BILATERAL in 1 year. 64087, 57331 3342F, 7025F Dictating Physician: ??ROSEANN PILLAI MD Electronically Signed by: ??ROSEANN PILLAI MD Dic Date/Time: ??09/05/21 121 Sign date/Time: ??09/05/21 1214 Procedure Note Roseann Pillai MD - 03/15/2022 [facility] Diagnostic Imaging Department [address] [place] [address] Patient: JOSE MARTIN COLLINSSAGAR D.O.B./Age/Sex: 1970 - 51 -F Unit#: [id number] [facility] CLI Mnemonic/Ordering Site: [facility] Ordering Physician: KATIA GUERRIER MD [facility] Screening Digital - 09/05/21826 EXAM: [facility] Screening Digital EXAM DATE AND TIME: 09/05/2021 [...] MLO projection. Computer aided detection with the [employer] employed. TISSUE DENSITY: b. There are scattered [...] Routine screening mammogram BILATERAL in 1 year. 79067, 46534 3342F, 7025F Dictating Physician: ROSEANN PILLAI MD [...] mg/dL Blood Venous blood specimen / Unknown Lauren Provider LAB BLOOD ORDERABLES Preethi casarez Result from Last 3 Months or Most Recently Relevant to Health Maintenance Insurance [employer] [place] Care Teams Sexual Assault Social Worker Relationship Specialty Start Date End Date Katia Guerrier MD PCP - General Endocrinology 04/30/24
== END 2024-07-21 14:41 | disposition home or self-care (01) ==
LOC: HO.HMCFM 13:45
PROVIDERS: PCP Internal Medicine; Visit Provider Internal Medicine
DX: Z00.00 Encounter for general adult medical examination without abnormal findings (principal); R53.82 Chronic fatigue, unspecified; B27.90 Infectious mononucleosis, unspecified without complication; R06.09 Other forms of dyspnea; R23.2 Flushing; M79.2 Neuralgia and neuritis, unspecified

== ENCOUNTER 2024-08-06 08:16 | Outpatient (REF) | payer BC, SELFPAY ==
--- OUTSIDE RECORDS SUMMARY | 2024-08-06 08:23 | XMS_ITS | Clinical Summary ---
Author Organization [facility] [address] [facility] Address [address] [place] [address] Phone Care Team Providers Care Dietitian Teacher Name Role Phone Katia Guerrier MD Primary Care Provider [phone] Allergies Active Allergy Reactions Criticality Noted Date [...] Encounters Date Type Department Care Team Description 08/01/2024 Telephone Urogynecology - [place] [address] [place] [address] Mayelin Alegria MD URODYNAMICS 07/03/2024 2:00 PM EDT Office Visit Urogynecology [address] [phone] Mayelin Alegria MD Stress incontinence (Primary Dx); OAB (overactive bladder); Urge urinary incontinence; Female cystocele from Last 3 Months Surgical History Surgery Date Site/Laterality Comments OTHER SURGICAL HISTORY 2004 PROCEDURE: ---- OTHER ----; COMMENT: uterine polyp removed VARICOSE VEIN SURGERY 03/07/2016 Bilateral PROCEDURE: [place] LIGJ DIVJ &/EXCJ VARICOSE VEIN CLUSTER 1 LEG; COMMENT: laser ablation (RLE); 03/10/2016 (Right) phlebectomy OTHER SURGICAL HISTORY 05/08/2008 Right PROCEDURE: HISTORICAL SUBTOTAL THYROIDECTOMY UPPER GASTROINTESTINAL ENDOSCOPY 05/29/2011 PROCEDURE: [place] UPPER GI ENDOSCOPY PERFORMED; COMMENT: GERD BREAST BIOPSY 05/14/2013 Left PROCEDURE: BX BREAST; PERC NEEDLE CORE W/IMAG GUID; COMMENT: 2 breast nodules UPPER GASTROINTESTINAL ENDOSCOPY 02/24/2008 PROCEDURE: SC UPPER GI ENDOSCOPY PERFORMED; COMMENT: small hiatal [...] First degree relatives with breast cancer; follows [facility] Vitamin D deficiency 04/12/2018 DX:Vitamin [...] 07/03/2024 3:01 PM EDT OAB (overactive bladder) [facility] SCREENING DIGITAL Routine 09/05/2021 12:14 PM EDT Encounter for screening mammogram for malignant neoplasm of breast LIPID PANEL Routine 02/18/2020 from Last 3 Months or Most Recently Relevant to Health Maintenance Results * (ABNORMAL) POC Urine Auto W/O Micro (07/03/2024 3:01 PM EDT) Glucose UA POC Negative Negative, Trace mg/dL Bilirubin UA POC Negative Negative, Small Ketones UA POC Negative Negative, Trace Specific [place] UA POC 1.015 Blood UA POC Trace [...] TEST ENTER/EDIT O RDERABLES Final Result * [facility] SCREENING DIGITAL (09/05/2021 12:14 PM EDT) Anatomical Region Laterality Modality Mammography 09/05/2021 7:55 AM EDT Narrative 09/05/2021 12:[address] [facility] Diagnostic Imaging Department [address] [place] [address] Patient: ??SAGAR STEIN ?/Age/Sex: 1970 - Unit#: ??[id number] ? Location/Status: ??SPDIMAM/REG CLI ? Mnemonic/Ordering Site: ??DIGSC/SPMAM Ordering Physician: ??KATIA GUERRIER MD [facility] Screening Digital - 09/05/21826 EXAM: [facility] Screening Digital EXAM DATE AND TIME: [...] MLO projection. Computer aided detection with the [employer] 7.2-H was employed. TISSUE DENSITY: b. There [...] screening mammogram BILATERAL in 1 year. 95511, 03124 3342F, 7025F Dictating Physician: ??ROSEANN PILLAI MD Electronically Signed by: ??ROSEANN PILLAI MD Dic Date/Time: ??09/05/21 121 Sign date/Time: ??09/05/21 1214 Procedure Note Roseann Pillai MD - 03/15/2022 [facility] Diagnostic Imaging Department [address] [place] [address] Patient: JOSE MARTINAlisa COLLINSSAGAR D.O.B./Age/Sex: 1970 - 51 -F Unit#: [id number] Location/Status: [facility] CLI Mnemonic/Ordering Site: [facility] Ordering Physician: KATIA GUERRIER MD [facility] Screening Digital - 09/05/21826 EXAM: [facility] Screening Digital EXAM DATE AND TIME: [...] MLO projection. Computer aided detection with the [employer] employed. TISSUE DENSITY: b. There are scattered [...] Routine screening mammogram BILATERAL in 1 year. 35716, 07164 3342F, 7025F Dictating Physician: ROSEANN PILLAI MD [...] Most Recently Relevant to Health Maintenance Insurance [facility] Care Teams Dietitian Teacher Relationship Specialty Start Date End Date Katia Guerrier MD PCP - General Endocrinology 04/30/24
--- OUTSIDE RECORDS SUMMARY | 2024-08-06 08:23 | XMS_ITS | Continuity of Care Document ---
Author Organization [facility] Address [address] [place] [address] [address] [place] [address] Phone Care Team Providers Care Posting Machine Operator Name Role Phone Valentin ESPANA, CAITLIN MELGAR Robert Unavailable U navailable Advance Directives Directive Yes / No Effective Date File Name No Information Encounters Encounter Description Practice Location Reason(s) For Visit Diagnoses Date Provider Providers Copied on Encounter [facility], [address] [place] [address] [address], [place], [id number], tel:[phone] [facility] No Information 5 Valentin ESPANA, CAITLIN MELGAR. [address] [place] [address], [id number] , [place]. tel:[phone] Family History Family Member Type Diagnosis Age At Onset No Information Payers Payer name Insurance type Covered libertarian ID Authoriza tion(s) No Information Social History [...]
--- OUTSIDE RECORDS SUMMARY | 2024-08-06 08:23 | XMS_ITS | Encounter Summary ---
Author Organization [facility] Address [address] [place] [address] Care Team Providers Care Car Tracer Name Role Phone Katia Guerrier MD Primary Care Provider [phone] Reason for Visit * Reason Onset Date Comments URODYNAMICS 08/01/2024 Encounter Details Date Type Department Care Team ([facility] st Contact Info) Description 08/01/2024 Telephone Urogynecology - [address] [phone] Mayelin Alegria MD [address] [facility] [address] [place] [address] URODYNAMICS Social History Tobacco Use Types Packs/Day Years Used Date Smoking Tobacco: Former Smokeless Tobacco: Never Alcohol Use Standard Drinks/Week Comments Yes 0 (1 standard drink = 0.6 oz pur e alcohol) Comments Unknown Sex and Gender Information Value Date Recorded Sex Assigned at Not on file Legal Sex Female 12:16 PM EST Gender Identity Not on file Sexual Orientation Not on file documented as of this encounter Progress Notes * Nguyen Crystal - 08/01/2024 8:57 AM EDT Patient called today to schedule her urodynamics. Who are we scheduling these procedures with now? Please call patient to schedule documented in this encounter Plan of Treatment Not on file documented as of this encounter Visit Diagnoses Not on filedocumented in this encounter Care Teams Car Tracer Relationship Specialty Start Date End Date Katia Guerrier MD PCP - General Endocrinology 04/30/24 documented as of this encounter
[2024-08-06 10:59] LABS: MANUAL DIFF FLAG NO
[2024-08-06 11:04] LABS: Basophils Percent Auto 0.7 % (0-2); Eosinophils Absolute Auto 0.2 X10*3/uL (0.0-0.4); Eosinophils Percent Auto 3.8 % (0-4); Hematocrit 37.3 % (37.0-47.0); Hemoglobin 12.4 g/dl (12.0-16.0); Imm Gran Abs Auto 0.01 X10*3/uL (0.00-0.03); Imm Gran Pct Auto 0.2 % (0.0-0.4); Lymphocytes Absolute Auto 1.6 X10*3/uL (1.2-4.9); Lymphocytes Percent Auto 27.3 % (20-40); Mean Corpuscular HGB Conc 33.2 g/dl (31.0-35.0); Mean Corpuscular Hemoglobin 29.3 pg (27.0-33.0); Mean Corpuscular Volume 88.2 fL (80.0-98.0); Mean Platelet Volume 11.9 fL (9.4-12.3); Monocytes Absolute Auto 0.4 X10*3/uL (0.1-1.2); Neutrophils Absolute Auto 3.6 x10*3/uL (2.0-8.3); Platelet Count 224 X10*3/uL (160-400); Red Blood Count 4.23 X10*6/uL (4.20-5.50); Red Cell Distribution Width 13.4 % (11.0-16.0); White Blood Count 5.8 X10*3/uL (4.8-10.8)
[2024-08-06 11:05] LABS: Appearance Urine Turbid; Color Urine Yellow; Glucose Urine UA Negative (Negative); Leukocyte Esterase Urine Moderate (2+) (Negative); Nitrite Urine Negative (Negative); PH 5.5 (5.0-9.0); Specific Gravity - Urine 1.025 (1.005-1.025); UMIC TRIGGER UACC YES; Urine Blood Trace (Negative); Urine Ketones Trace mg/dL (Negative); Urine Protein Negative (Neg-Trace)
[2024-08-06 11:13] LABS: Estimated Average Glucose 123 mg/dL; Hemoglobin A1C 132.1313 umol/L; Hemoglobin A1c % 5.9 % (<6.0); Total Hemoglobin (HGBA1C) 3236.2747 umol/L
[2024-08-06 11:19] LABS: Bacteria Urine Trace (None Seen); Hyaline Casts Urine 0-2 /LPF (0-2); UACC Culture Trigger YES
[2024-08-06 11:35] LABS: Alanine Aminotransferase 22 U/L (0-31); Albumin Level 4.3 g/dL (3.5-5.0); Alkaline Phosphatase 81 U/L (39-117); Anion Gap 13 (12-20); Aspartate Amino Transferase 23 U/L (5-31); Bilirubin Total 0.7 mg/dL (0.0-1.0); Blood Urea Nitrogen 26 mg/dL (9-16); Calcium 9.4 mg/dL (8.4-10.2); Carbon Dioxide 27 mmol/L (22-29); Chloride 105 mmol/L (96-108); Estimated Glomerular Filt Rate > 60; Glucose Random 102 mg/dL (60-115); Iron 110 mcg/dL (30-160); Percent Iron Saturation 33 % (15-50); Potassium 4.4 mmol/L (3.3-5.1); Sodium 141 mmol/L (135-145); Total Iron Binding Capacity 334 mcg/dL (228-428); Total Protein 7.2 g/dL (6.5-8.0); Unsaturated Iron Binding 224 ug/dL
[2024-08-06 11:54] LABS: Folate 16.3 ng/mL (> or = 4.0); Vitamin B12 727 pg/mL (200-900)
[2024-08-06 11:58] LABS: Ferritin 27 ng/mL (10-250); TSH reflex Free T4 3.02 uIU/mL (0.32-4.0)
[2024-08-06 12:16] LABS: Erythrocyte Sedimentation Rate 23 MM/HR (0-20)
[2024-08-08 18:49] LABS: EBV DNA PCR Not Detected (Not Detected); EBV Source Whole Blood
[2024-08-11 12:47] LABS: Vitamin D 25-OH, D2 <4 ng/mL; Vitamin D 25-OH, D3 36 ng/mL; Vitamin D 25-OH, Total 36 ng/mL (30-100)
[2024-08-11 16:44] LABS: Apolipoprotein B 109 mg/dL (<90)
[2024-08-11 17:37] LABS: IGF-1 (Somatomedin C) 128 ng/mL (50-317); IGF-1 Z Score (Female) -0.2 SD (-2.0 - +2.0)
[2024-08-12 16:04] LABS: Vitamin B1 10 nmol/L (8-30)
== END 2024-08-06 08:17 | disposition home or self-care (01) ==
LOC: HO.WFDLDS 08:16
PROVIDERS: Visit Provider Internal Medicine
DX: R73.03 Prediabetes (principal); R79.89 Other specified abnormal findings of blood chemistry; E89.0 Postprocedural hypothyroidism; J31.2 Chronic pharyngitis; R20.2 Paresthesia of skin; R20.0 Anesthesia of skin; R53.82 Chronic fatigue, unspecified; B27.90 Infectious mononucleosis, unspecified without complication; Z13.6 Encounter for screening for cardiovascular disorders
CPT/HCPCS: 36415; 80053; 81001; 81003; 82172; 82306; 82607; 82728; 82746; 83036; 83540; 84305; 84425; 84443; 85025; 85652; 86141; 87086; 87798

== ENCOUNTER 2024-08-15 07:33 | Outpatient (REF) | payer BC, SELFPAY ==
--- NOTE | ~2024-08-15 | XR_ITS ---
EXAMINATION: XR THORACIC SPINE CLINICAL INFORMATION: R29.890 - Loss of height COMPARISON: None available. TECHNIQUE: 3 views of the thoracic spine were obtained. FINDINGS: S-shaped curvature of the cervical thoracic junction and mid to lower thoracic spine. No acute cortical disruption. No lytic or blastic lesions. Small marginal osteophyte formation and sclerosis of the endplates in the mid thoracic spine and lower thoracic upper lumbar spine. XR/XR thoracic spine 2V IMPRESSION: Multilevel spondylosis and scoliosis. No acute fracture or gross listhesis. Electronically signed by: Junior Jordan MD 08/15/2024 08:28 AM EDT
--- NOTE | ~2024-08-15 | XR_ITS ---
EXAMINATION: XR LUMBOSACRAL SPINE CLINICAL INFORMATION: R29.890 - Loss of height COMPARISON: None available. TECHNIQUE: Three views of the lumbosacral spine. FINDINGS: Marginal osteophyte formation and endplate sclerosis and decreased intervertebral disc height at L1-2. No acute cortical disruption or gross malalignment. No lytic or blastic lesions. XR/XR lumbar spine 2-3V IMPRESSION: Spondylosis, L1-2. No acute fracture or listhesis. Electronically signed by: Junior Jordan MD 08/15/2024 08:29 AM EDT
--- OUTSIDE RECORDS SUMMARY | 2024-08-15 07:37 | XMS_ITS | Clinical Summary ---
Author Organization [facility] [address] [facility] Address [address] [place] [address] Phone Care Team Providers Care Senior Science Consultant Name Role Phone Katia Guerrier MD Primary Care Provider [phone] Allergies Active Allergy Reactions Criticality Noted Date [...] Care Team Description 08/01/2024 Telephone Urogynecology - [place] [address] [place] [address] Mayelin Alegria MD URODYNAMICS 07/03/2024 2:00 PM EDT Office Visit Urogynecology [address] [address] Mayelin Alegria MD Stress incontinence (Primary Dx); OAB (overactive bladder); Urge urinary incontinence; Female cystocele from Last 3 Months Surgical History Surgery Date Site/Laterality Comments OTHER SURGICAL HISTORY 2004 PROCEDURE: ---- OTHER ----; COMMENT: uterine polyp removed VARICOSE VEIN SURGERY 03/07/2016 Bilateral PROCEDURE: [place] LIGJ DIVJ &/EXCJ VARICOSE VEIN CLUSTER 1 LEG; COMMENT: laser ablation (RLE); 03/10/2016 (Right) phlebectomy OTHER SURGICAL HISTORY 05/08/2008 Right PROCEDURE: HISTORICAL SUBTOTAL THYROIDECTOMY UPPER GASTROINTESTINAL ENDOSCOPY 05/29/2011 PROCEDURE: [place] UPPER GI ENDOSCOPY PERFORMED; COMMENT: GERD BREAST BIOPSY 05/14/2013 Left PROCEDURE: BX BREAST; PERC NEEDLE CORE W/IMAG GUID; COMMENT: 2 breast nodules UPPER GASTROINTESTINAL ENDOSCOPY 02/24/2008 PROCEDURE: [place] UPPER GI ENDOSCOPY PERFORMED; COMMENT: small hiatal [...] First degree relatives with breast cancer; follows [facility] Vitamin D deficiency 04/12/2018 DX:Vitamin [...] 07/03/2024 3:01 PM EDT OAB (overactive bladder) [facility] SCREENING DIGITAL Routine 09/05/2021 12:14 PM [...] Ketones UA POC Negative Negative, Trace Specific [place] UA POC 1.015 Blood UA POC Trace [...] TEST ENTER/EDIT O RDERABLES Final Result * [facility] SCREENING DIGITAL (09/05/2021 12:14 PM EDT) Anatomical Region Laterality Modality Mammography 09/05/2021 7:55 AM EDT Narrative 09/05/2021 12:14 PM EDT [facility] Diagnostic Imaging Department [address] [place] [address] Patient: ??SAGAR STEIN ?/Age/Sex: 1970 - Unit#: ??[id number] ? Location/Status: ??SPDIMAM/REG CLI ? Mnemonic/Ordering Site: ??DIGSC/SPMAM Ordering Physician: ??KATIA GUERRIER MD [facility] Screening Digital - 09/05/[address]26 EXAM: [facility] Screening Digital EXAM DATE AND TIME: 09/05/2021 [...] MLO projection. 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 TISSUE DENSITY: b. There [...] Routine screening mammogram BILATERAL in 1 year. 19783, 66451 3342F, 7025F Dictating Physician: ??ROSEANN PILLAI MD Electronically Signed by: ??ROSEANN PILLAI MD Dic Date/Time: ??09/05/21 121 Sign date/Time: ??09/05/21 1214 Procedure Note Roseann Pillai MD - 03/15/2022 [facility] Diagnostic Imaging Department [address] [place] [address] Patient: JOSE MARTINAlisa COLLINSSAGAR D.O.B./Age/Sex: 1970 - 51 -F Unit#: [id number] Location/Status: [facility] CLI Mnemonic/Ordering Site: [facility] Ordering Physician: KATIA GUERRIER MD [facility] Screening Digital - 09/05/21826 EXAM: [facility] Screening Digital EXAM DATE AND TIME: 09/05/2021 [...] MLO projection. Computer aided detection with the [employer] employed. TISSUE DENSITY: b. There are scattered [...] Routine screening mammogram BILATERAL in 1 year. [address], 53013 3342F, 7025F Dictating Physician: ROSEANN PILLAI MD [...] Most Recently Relevant to Health Maintenance Insurance [facility] Care Teams Senior Science Consultant Relationship Specialty Start Date End Date Katia Guerrier MD PCP - General Endocrinology 04/30/24
[2024-08-15 08:55] LABS: Cholesterol 256 mg/dL (<200); HDL Cholesterol 65 mg/dL (>40); LDL Cholesterol Calculated 159 mg/dL (<100); Triglycerides 161 mg/dL (<150)
[2024-08-15 10:21] LABS: Appearance Urine Clear; Color Urine Yellow; Glucose Urine UA Negative (Negative); Leukocyte Esterase Urine Moderate (2+) (Negative); Nitrite Urine Negative (Negative); PH 5.5 (5.0-9.0); UMIC TRIGGER UACC YES; Urine Blood Negative (Negative); Urine Ketones Negative (Negative); Urine Protein Negative (Neg-Trace)
[2024-08-15 10:43] LABS: Bacteria Urine None Seen (None Seen); Hyaline Casts Urine 0-2 /LPF (0-2); RBC Urine 0-2 /HPF (0-2); Squamous Epithelial Cell Urine 0-2 /HPF (0-2); UACC Culture Trigger YES; WBC Urine 0-5 /HPF (0-5)
[2024-08-18 17:24] LABS: Homocysteine 8.6 umol/L (< or = 13.4)
[2024-08-19 17:04] LABS: CRP High Sensitivity 1.7 mg/L
[2024-08-22 04:13] LABS: Vitamin B1 10 nmol/L (8-30)
== END 2024-08-15 07:34 | disposition home or self-care (01) ==
LOC: HO.XRAY 07:33
PROVIDERS: PCP Internal Medicine; Visit Provider Internal Medicine
DX: R29.890 Loss of height (principal); R73.03 Prediabetes; J31.2 Chronic pharyngitis; R20.2 Paresthesia of skin; R20.0 Anesthesia of skin; B27.90 Infectious mononucleosis, unspecified without complication; R53.82 Chronic fatigue, unspecified; Z13.6 Encounter for screening for cardiovascular disorders
CPT/HCPCS: 36415; 72070; 72100; 80061; 81001; 81003; 83090; 84425; 86141; 87086

== ENCOUNTER → 2024-08-15 07:56 | Outpatient (BNV) | payer BC, SELFPAY | PROVIDERS: PCP Internal Medicine; Visit Provider Radiology Diagnostic Radiology | DX: R29.890 Loss of height (principal) | CPT/HCPCS: 72070; 72100 ==

== ENCOUNTER 2024-09-09 14:07 | Outpatient (AMB) | payer BC, SELFPAY ==
--- NOTE | 2024-09-09 14:09 | A.OFFPC_ITS ---
Vital Signs 09/09/24 14:15 BMI Reason not done Patient refused/unable BP 94/70 Blood Pressure Location Lt brachial Position Sitting Respiration 14 Pulse 74 Pulse Source Pulse Oximeter Temp 98.2 F Temp Source Oral Pulse Oximetry (%) 97 Oxygen Delivery Method Room Air Intake Visit Reasons: [facility] Discharge Follow-up Intake Note: Emergency room follow up. Still having pain left side. Feeling dizzy today. Parts Washer Required: No Allergies benzocaine topical Allergy (Unknown, Uncoded 09/09/24 14:13) burning skin nuts Allergy (Unknown, Uncoded 09/09/24 14:13) burning skin nuts, peanuts Allergy (Unknown, Uncoded 09/09/24 14:13) anaphylaxis nuts, soy Allergy (Unknown, Uncoded 09/09/24 14:13) gi upset Tobacco use date assessed: 09/09/24 Dental Screening Dental Screen Date: 06/30/24 HPI HPI Comments History of Present Illness Details The patient is a 54 year old female with a past medical history of prediabetes, anxiety, GERD, hyperlipidemia, hypothyroid, elevated LFTs, ASCUS, memory loss presenting for follow up Recent ER visit for flare in below constellation of symptoms. CT abd was benign. She has chronic overwhelming fatigue, muscle pain, neuralgia-left scalp, face and left torso, extremity. Was seeing [facility]. Lab testing per patient with EBV testing ~60,000. Repeated one month later here and normal. She has been taking lysine. She is worried she may go on to develop MS as she has family history and has had increasing symptoms and increasing difficulties with balance. She does have frequent hypoglycemia. She has a family history of parkinson (dad). She has an upcoming [facility]. She has history of DDD thoracic spine xray 2023 with S curvature, osteophyte. She is having severe menopausal hot flashes. She went to integrative medicine and was prescribed bioidentical hormone replacement. Currently not taking. She has seen urogyn. History of abnormal menses. Denia/menopausal. CV: Saw cardiology for increased exertional fatigue, mild shortness of breath. Had stress test. continues follow up-[facility]. Frequent low blood pressures. BH: 2022. Grief and depression well managemed. Has seen psych. Was on citalopram but intolerant side effects. Was on armodafinil for significant fatigue-had chest pain with this medication. Had more energy with adderall but worried that worsening memory so stopped. Was taking seroquel at night. She is troubled by ongoing memory changes. Worse over the past six months. Children tell her they are repeating themselves. She is not remembering things that happened in the last day, week. Feels like she has to concentrate on concentrating. She was seen for this previously. Did have an MRI-this showed microvascular disease. Dad had parkinsons, memory problems. She was evaluated by the memory clinic and diagnosed with MDD. She knows she still grieves but can differentiate this from her symptoms History of prediabetes-continues to work out regularly, eat healthy. She took mounjaro with good effect previously Hypothyroid: TSH has been within goal on levothyroxine. History of left partial thyroidectomy. Was previously hyperthyroid GERD: Stable. Saw [facility]. On pepcid omeprazole Mammo UTD, pap UTD. Had colonoscopy 10/2020. LMP in July 2023 ROS see HPI PHYSICAL EXAM: GENERAL: Alert and oriented x 3. NAD EYES: EOMI. Anicteric. HENT: Moist mucous membranes. left paratracheal node LUNGS: Clear to auscultation bilaterally. CARDIOVASCULAR: Regular rate and rhythm. No murmur. No JVD. ABDOMEN: Soft, non-tender +bs EXTREMITIES: No edema. Non-tender. SKIN: No rashes or lesions. Warm. NEUROLOGIC: No focal neurological deficits. CN II-XII grossly intact PSYCHIATRIC: Cooperative. Appropriate mood and affect [facility] Medical History Loss of height Right ankle pain Prediabetes Obesity, Class I, BMI 30-34.9 Lumbar radiculopathy Low back pain Hypothyroidism Elevated LFTs Depression Anxiety Surgical History History of colonoscopy (~11/18/20) H/O abdominoplasty Family History Father Parkinson disease Mother No problems noted. 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 How often do you have a drink containing alcohol?: 2-3 times a week 2. How many drinks containing alcohol do you have on a typical day when you are drinking?: 3 or 4 3. How often do you have six or more drinks on one occasion?: Never Total Score: 4 Physical exam (Primary Care) Vital Signs: Last Vital Signs Temp 98.2 F 09/09/24 14:15 Pulse 74 09/09/24 14:15 Resp 14 09/09/24 14:15 BP 94/70 09/09/24 14:15 Pulse Ox 97 09/09/24 14:15 Oxygen Delivery Method Room Air 09/09/24 14:15 Tobacco/Smoking Status: Tobacco use Status Tobacco use date assessed 09/09/24 09/09/24 14:19 Patient Tobacco Use Status Former Tobacco user 09/09/24 14:11 e-Cigarette/Vaping Use Never Used 09/09/24 14:11 Coding Level of Care Code Est Pt Level 4 (33426) Complex EM visit Add On G2211 Diagnoses Cervical lymphadenopathy R59.0 Thoracic radiculopathy M54.14 Neuritis M79.2 Left upper quadrant abdominal pain R10.12 Abdominal location: left upper quadrant Chronic fatigue R53.82 Idiopathic hypotension I95.0 Hypotension type: idiopathic hypotension Assessment & Plan Assessment & Plan (1) Cervical lymphadenopathy: Code(s): R59.0 - Localized enlarged lymph nodes Category: Medical (2) Thoracic radiculopathy: Code(s): M54.14 - Radiculopathy, thoracic region Category: Medical (3) Neuritis: Code(s): M79.2 - Neuralgia and neuritis, unspecified Category: Medical (4) Abdominal pain: Code(s): R10.9 - Unspecified abdominal pain Category: Medical Qualifiers: Abdominal location: left upper quadrant Qualified Code(s): R10.12 - Le ft upper quadrant pain (5) Chronic fatigue: Code(s): R53.82 - Chronic fatigue, unspecified Category: Medical (6) Hypotension: Code(s): I95.9 - Hypotension, unspecified Category: Medical Qualifiers: Hypotension type: idiopathic hypotension Qualified Code(s): I95.0 - Idiopathic hypotension Plan Fatigue neuritis, radicular thoracic and cervical pain, hypotension MRI neck r/o MS, thoracic spine Upcoming neurology consult Reviewed previous cardiology work up Orders: Orders MR cervical spine wo/w con Today I95.9 - Hypotension, unspecified, M79.2 - Neuralgia and neuritis, unspecified, R20.0 - Anesthesia of skin, R20.2 - Paresthesia of skin, R53.82 - Chronic fatigue, unspecified US soft tiss head and/or neck Today R59.0 - Localized enlarged lymph nodes MR thoracic spine wo con Today M54.14 - Radiculopathy, thoracic region, M79.2 - Neuralgia and neuritis, unspecified
[2024-09-09 14:15] VITALS: BP 94/70; PULSE 74; RESP 14; TEMP 36.8; O2SAT 97
--- OUTSIDE RECORDS SUMMARY | 2024-09-09 16:20 | XMS_ITS | Continuity of Care Document ---
Author Organization [facility] Address [address] [place] [address] [address] [place] [address] Phone Care Team Providers Care Spray Dyer Name Role Phone Valentin ESPANA, CAITLIN MELGAR Robert Unavailable U navailable Advance Directives Directive Yes / No Effective Date File Name No Information Encounters Encounter Description Practice Location Reason(s) For Visit Diagnoses Date Provider Providers Copied on Encounter [facility], [address] [place] [address] [address], [place], [id number], tel:[phone] [facility] No Information 5 Valentin ESPANA, CAITLIN MELGAR. [address] [place] [address], [id number] , [place]. tel:[phone] Family History Family Member Type Diagnosis Age At Onset No Information Payers Payer name Insurance type Covered green party ID Authoriza tion(s) No Information Social [...]
== END 2024-09-09 16:45 | disposition home or self-care (01) ==
LOC: HO.HMCFM 14:08
PROVIDERS: PCP Internal Medicine; Visit Provider Internal Medicine
DX: R59.0 Localized enlarged lymph nodes (principal); M54.14 Radiculopathy, thoracic region; R10.12 Left upper quadrant pain; R53.82 Chronic fatigue, unspecified; I95.0 Idiopathic hypotension

== ENCOUNTER → 2024-09-09 14:07 | Outpatient (BNVA) | payer BC, SELFPAY | PROVIDERS: PCP Internal Medicine; Visit Provider Internal Medicine ==

== ENCOUNTER 2024-09-19 13:57 | Outpatient (REF) | payer BC, SELFPAY ==
--- OUTSIDE RECORDS SUMMARY | 2024-05-05 11:02 | XMS_ITS | Continuity of Care Document ---
Author Organization [facility] Address [address] [place] [address] [address] [place] [phone] Phone Care Team Providers Care Warhead Maintenance Specialist Name Role Phone Valentin ESPANA, CAITLIN MELGAR Robert Unavailable U navailable Advance Directives Directive Yes / No Effective Date File Name No Information Encounters Encounter Description Practice Location Reason(s) For Visit Diagnoses Date Provider Providers Copied on Encounter [facility], [address] [place] [address] [address], [place], [id number], tel:[phone] [facility] No Information 5 Valentin ESPANA, CAITLIN MELGAR. [address] [place] [address], [id number] , [place]. tel:[phone] Family History Family Member Type Diagnosis Age At Onset No Information Payers Payer name Insurance type Covered alliance party ID Authoriza tion(s) No Information Social History [...]
--- NOTE | ~2024-09-19 | US_ITS ---
EXAMINATION: US THYROID CLINICAL INFORMATION: Left paratracheal lymph nodes. No palpable lump as per patient. COMPARISON: None available. TECHNIQUE: Linear transducer north-scale and color Doppler examination with attention to the left paratracheal region and neck. FINDINGS: No abnormal left paratracheal lymph nodes or masses. No abnormal cystic foci. A normal left level 2 lymph node is present measuring 1.2 x 0.5 x 0.5 cm. Incidental note made in the left thyroid is a 7 x 4 x 5 mm nodule. No follow-up recommended given small size. US/US soft tiss head and/or neck IMPRESSION: 1. No abnormal lymph nodes, masses, fluid collections within the neck. Specifically, no abnormal left paratracheal nodes are noted. 2. Subcentimeter left thyroid nodule. No follow-up recommended given size.. Electronically signed by: Calixto Bolden MD 09/19/2024 02:41 PM EDT
== END 2024-09-19 13:58 | disposition home or self-care (01) ==
LOC: HO.HMGCX 13:57
PROVIDERS: PCP Internal Medicine; Visit Provider Internal Medicine
DX: R59.0 Localized enlarged lymph nodes (principal)
CPT/HCPCS: 76536

== ENCOUNTER → 2024-09-19 14:00 | Outpatient (BNV) | payer BC, SELFPAY | PROVIDERS: PCP Internal Medicine; Visit Provider Radiology Diagnostic Radiology | DX: E04.1 Nontoxic single thyroid nodule (principal) | CPT/HCPCS: 76536 ==

== ENCOUNTER 2024-09-24 18:14 | Outpatient (REF) | payer BC, SELFPAY ==
--- OUTSIDE RECORDS SUMMARY | 2024-05-05 11:02 | XMS_ITS | Continuity of Care Document ---
Author Organization [facility] Address [address] [place] [address] [address] [place] [phone] Phone Care Team Providers Care Civil Engineer'S Aide Name Role Phone Valentin ESPANA, CAITLIN MELGAR Robert Unavailable U navailable Advance Directives Directive Yes / No Effective Date File Name No Information Encounters Encounter Description Practice Location Reason(s) For Visit Diagnoses Date Provider Providers Copied on Encounter [facility], [address] [place] [address] [address], [place], [id number], tel:[phone] [facility] No Information 5 Valentin ESPANA, CAITLIN MELGAR. [address] [place] [address], [id number] , [place]. tel:[phone] Family History Family Member Type Diagnosis Age At Onset No Information Payers Payer name Insurance type Covered republican ID Authoriza tion(s) No Information Social History Type Description Quantity Date Captured Comments Sex Female Smoking Status No Information Chief Complaint And Reason For Visit No Information Reason For Referral Reason For Referral No Information History Of Present Illness Encounter Date Complaint History Of Prese nt Illness No Information Functional Status Date Functional Assessmen t No Information Instructions Date Instruction Additional Infor mation No Information Assessments Type Assessment Date No Information Patient Care Teams Name Effective Dates (start - stop) Status Members No Information
--- NOTE | ~2024-09-24 | MR_ITS ---
EXAMINATION: MR THORACIC SPINE WITHOUT CONTRAST CLINICAL INFORMATION: Neuralgia and neuritis. COMPARISON: Correlated to x-ray dated August 15, 2024. TECHNIQUE: MRI of the thoracic spine was obtained using routine sequences without contrast. FINDINGS: No gross bone marrow STIR signal abnormality. Multilevel disc desiccation and decreased intervertebral disc height and small marginal osteophyte formation more pronounced at T2-T3, T4-5 and T6-7. Syndesmophyte formation and marginal osteophyte formation at L1-2. There is an a shaped curvature of the thoracic spine with a levoconvex curvature apex at T4-5. The thoracic spinal cord signal is normal. There is normal alignment between the vertebral bodies. T1-2: No disc herniation. No cord compression. T2-3: No disc herniation. Right ventral deformity of the thecal sac without cord compression secondary to scoliosis. T3-4: Right ventral deformity of the thecal sac without cord compression secondary to scoliosis. No disc herniation. T4-5: Right ventral deformity of the thecal sac abutting the cord. No cord compression. T5-6: No disc herniation. No cord compression. T6-7: No disc herniation. T7-8: No disc herniation. T8-9: No disc herniation. T9-10: No disc herniation. T10-11: No disc herniation. T11-12: No disc herniation. Facet joint hypertrophy. No cord compression. No prevertebral compartment hematoma, mass or fluid collection. Conus medullaris ends at intervertebral disc T12-L1 with normal signal. MR/MR thoracic spine wo con IMPRESSION: Multilevel T3 T9 spondylosis and levoconvex scoliosis apex at T3-4. No cord compression, cord edema and or myelopathy. Electronically signed by: Junior Jordan MD 09/25/2024 07:48 AM EDT
--- NOTE | ~2024-09-24 | MR_ITS ---
EXAMINATION: MR CERVICAL SPINE WITHOUT CONTRAST CLINICAL INFORMATION: Chronic fatigue. Back pain. Left-sided weakness numbness and pain. COMPARISON: None available. TECHNIQUE: MRI of the cervical spine was obtained using routine sequences without contrast. FINDINGS: Craniocervical junction is intact. There is normal position of the cerebellar tonsils. No bone marrow STIR signal abnormality. Marginal osteophyte formation, disc desiccation, decreased intervertebral disc height at C5-C6 C6-7 and to a lesser extent C7-T1. Reverse curvature apex at C5-6. Grade 1 anterolisthesis C4-5. Cervical spinal cord signal is normal. C2-3: Central disc osteophyte complex formation. No cord compression. No neuroforamina stenosis. C3-4: No disc herniation. No neuroforamina stenosis. C4-5: Central disc osteophyte complex formation. No cord compression. No neuroforamina stenosis. C5-6: Left subarticular and foraminal disc osteophyte complex formation resulting in ventral spinal cord deformity flattening and CSF effacement of the thecal sac. No cord signal abnormality. Bilateral, left greater than right neuroforamina stenosis. C6-7: Broad-based disc osteophyte compresses formation resulting in flattening of the spinal cord and CSF effacement of the thecal sac. Bilateral neuroforamina stenosis. Bilateral perineural cysts larger on the right side. C7-T1: Broad-based disc osteophyte complex formation. No cord compression. Bilateral neuroforamina stenosis. No prevertebral compartment hematoma, mass or fluid collection. Flow-void signal within the main vessels is normal. Codominant vertebral arteries. MR/MR cervical spine wo con IMPRESSION: Multilevel cervical spondylosis C5 C7 resulting in reverse curvature at C5-6 and central spinal canal stenosis with likely cord compression at C5-6 and C6-7 levels. No cord edema and or myelopathy. Bilateral left greater than right neuroforamina stenosis C5-6 and C6-7. Electronically signed by: Junior Jordan MD 09/25/2024 07:23 AM EDT
--- OUTSIDE RECORDS SUMMARY | 2024-09-24 18:23 | XMS_ITS | Clinical Summary ---
Author Organization [facility] [address] [facility] Address [address] [place] [address] Phone Care Team Providers Care Sales Agent Business Services Name Role Phone Katia Guerrier MD Primary Care Provider [phone] Allergies Active Allergy Reactions Criticality Noted Date [...] Care Team Description 08/01/2024 Telephone Urogynecology - [place] [address] [place] [address] Mayelin Alegria MD URODYNAMICS 07/03/2024 2:00 PM EDT Office Visit Urogynecology [address] [address] Mayelin Alegria MD Stress incontinence (Primary Dx); OAB (overactive bladder); Urge urinary incontinence; Female cystocele from Last 3 Months Surgical History Surgery Date Site/Laterality Comments OTHER SURGICAL HISTORY 2004 PROCEDURE: ---- OTHER ----; COMMENT: uterine polyp removed VARICOSE VEIN SURGERY 03/07/2016 Bilateral PROCEDURE: [place] LIGJ DIVJ &/EXCJ VARICOSE VEIN CLUSTER 1 LEG; COMMENT: laser ablation (RLE); 03/10/2016 (Right) phlebectomy OTHER SURGICAL HISTORY 05/08/2008 Right PROCEDURE: HISTORICAL SUBTOTAL THYROIDECTOMY UPPER GASTROINTESTINAL ENDOSCOPY 05/29/2011 PROCEDURE: [place] UPPER GI ENDOSCOPY PERFORMED; COMMENT: GERD BREAST BIOPSY 05/14/2013 Left PROCEDURE: BX BREAST; PERC NEEDLE CORE W/IMAG GUID; COMMENT: 2 breast nodules UPPER GASTROINTESTINAL ENDOSCOPY 02/24/2008 PROCEDURE: [place] UPPER GI ENDOSCOPY PERFORMED; COMMENT: small hiatal [...] First degree relatives with breast cancer; follows [facility] Vitamin D deficiency [...] Years) (1 of 2 - PCV) 1989 Zoster Vaccines (1 of 2) 1989 Cervical Cancer Screening: Pap Smear 1991 Colorectal Cancer Screening: Colonoscopy 02/21/2022 Depression Screening [...] 07/03/2024 3:01 PM EDT OAB (overactive bladder) [facility] SCREENING DIGITAL Routine 09/05/2021 12:14 PM [...] Ketones UA POC Negative Negative, Trace Specific [place] UA POC 1.015 Blood UA POC Trace [...] TEST ENTER/EDIT O RDERABLES Final Result * [facility] SCREENING DIGITAL (09/05/2021 12:14 PM EDT) Anatomical Region Laterality Modality Mammography 09/05/2021 7:55 AM EDT Narrative 09/05/2021 12:14 PM EDT [facility] Diagnostic Imaging Department [address] [place] [address] Patient: JOSE MARTIN COLLINSSAGAR /Age/Sex: 1970 - Unit#: [id number] [facility] Mnemonic/Ordering Site: [facility] Ordering Physician: KATIA GUERRIER MD [facility] Screening Digital - 09/05/21826 EXAM: [facility] Screening Digital EXAM DATE AND TIME: 09/05/2021 8:27 AM HISTORY: Screening. Excisional biopsy of the left breast in 2020, pathology benign (myxoid fibroadenoma). Earlier bilateral breast biopsies, pathology benign. Family history of breast carcinoma including 2 paternal aunts and maternal grandmother. COMPARISON: 02/13/20, 01/02/19, 12/27/17, 02/17/15 TECHNIQUE: CC and MLO views of both breasts were obtained using full field digital mammography. Bilateral digital breast tomosynthesis was performed in the MLO projection. Computer aided detection with the [employer] 7.2-H was employed. TISSUE DENSITY: b. There [...] Routine screening mammogram BILATERAL in 1 year. 63127, 63298 3342F, 7025F Dictating Physician: ROSEANN PILLAI MD Electronically Signed by: ROSEANN PILLAI MD Dic Date/Time: 09/05/21 1212 Sign date/Time: 09/05/21 1214 Procedure Note Roseann Pillai MD - 03/15/2022 [facility] Diagnostic Imaging Department [address] [place] [address] Patient: JOSE MARTIN COLLINSSAGARO.B./Age/Sex: 1970 - 51 -F Unit#: [id number] Location/Status: [facility] CLI Mnemonic/Ordering Site: [facility] Ordering Physician: KATIA GUERRIER MD [facility] Screening Digital - 09/05/21826 EXAM: [facility] Screening Digital EXAM DATE AND TIME: [...] MLO projection. Computer aided detection with the [employer] employed. TISSUE DENSITY: b. There are scattered [...] Routine screening mammogram BILATERAL in 1 year. [address]86, 65684 3342F, 7025F Dictating Physician: ROSEANN PILLAI MD [...] Most Recently Relevant to Health Maintenance Insurance [facility] Care Teams Sales Agent Business Services Relationship Specialty Start Date End Date Katia Guerrier MD PCP - General Endocrinology 04/30/24
== END 2024-09-24 18:15 | disposition home or self-care (01) ==
LOC: HO.MRI 18:14
PROVIDERS: PCP Internal Medicine; Visit Provider Internal Medicine
DX: M54.14 Radiculopathy, thoracic region (principal); R20.2 Paresthesia of skin; R20.0 Anesthesia of skin; R53.82 Chronic fatigue, unspecified
CPT/HCPCS: 72141; 72146

== ENCOUNTER → 2024-09-24 18:15 | Outpatient (BNV) | payer BC, SELFPAY | PROVIDERS: PCP Internal Medicine; Visit Provider Radiology Diagnostic Radiology | DX: M47.814 Spondylosis without myelopathy or radiculopathy, thoracic region (principal); M47.812 Spondylosis without myelopathy or radiculopathy, cervical region | CPT/HCPCS: 72141; 72146 ==

== ENCOUNTER 2024-10-10 09:43 | Outpatient (REF) | payer BC, SELFPAY ==
--- OUTSIDE RECORDS SUMMARY | 2024-05-05 11:02 | XMS_ITS | Continuity of Care Document ---
Author Organization [facility] Address [address] [place] [address] [address] [place] [phone] Phone Care Team Providers Care Integration Specialist Name Role Phone Valentin ESPANA, CAITLIN MELGAR Robert Unavailable U navailable Advance Directives Directive Yes / No Effective Date File Name No Information Encounters Encounter Description Practice Location Reason(s) For Visit Diagnoses Date Provider Providers Copied on Encounter [facility], [address] [place] [address] [address], [place], [id number], tel:[phone] [facility] No Information 5 Valentin ESPANA, CAITLIN MELGAR. [address] [place] [address], [id number] , [place]. tel:[phone] Family History Family Member Type Diagnosis Age [...]
--- NOTE | ~2024-10-10 | US_ITS ---
EXAMINATION: US ABDOMEN LIMITED WITH LIVER ELASTOGRAPHY HISTORY: R79.89 - Other specified abnormal findings of blood chemistry TECHNIQUE: Real-time grayscale ultrasound imaging of the right upper quadrant was performed and images were reviewed. COMPARISON: There are no prior studies available for comparison. FINDINGS: Liver: The right lobe of the liver measures 16.9 cm in size. The left lobe of the liver measures 8.2 cm in size. The liver demonstrates increased echotexture, consistent with steatosis. No focal mass or intrahepatic biliary ductal dilatation is identified. There is normal hepatopedal flow in the portal vein. Ultrasound elastography of the liver was performed with 10 separate measurements of the liver parenchyma with the patient in the supine position. Measurements were obtained approximately 2 cm below Nellie's capsule and perpendicular to the capsule. The median shear wave velocity is 1.34 m/s. The interquartile range/median (IQR/median) is 0.13. Gallbladder and biliary tree: The gallbladder is unremarkable, without evidence of calculi, wall thickening, or pericholecystic fluid. There is no sonographic Downing sign. The common bile duct is normal in caliber measuring 4 mm. Right Kidney: The right kidney measures 9.6 cm in length. The right kidney is unremarkable, without evidence of masses, hydronephrosis, or calculi. Pancreas: The pancreatic head, neck, and body are unremarkable. The pancreatic tail is obscured by bowel gas. Abdominal aorta and inferior vena cava: The visualized portions of the abdominal aorta and inferior vena cava are normal in caliber. There is no free fluid in the right upper quadrant. US/US abdomen meneses w elastography IMPRESSION: Hepatic steatosis. The median shear wave velocity in the liver is 1.34 m/s, corresponding to a median liver stiffness of 5.45 kPa. The IQR/median value is 0.13. This is indicative of a quality data set. Findings are indicative of a low elastography value which rules out advanced chronic liver disease in asymptomatic patients. REFERENCE: Society of Radiologists in Ultrasound Liver Stiffness Thresholds (2020): LIVER STIFFNESS THRESHOLDS: *Shear wave velocity less than 1.3 m/s (Liver Stiffness equal or less than 5 kPa): High probability of being normal. *Shear wave velocity less than 1.7 m/s (Liver Stiffness less than 9 kPa): In the absence of other known clinical signs, rules out compensated advanced chronic liver disease. *Shear wave velocity between 1.7-2.1 m/s (Liver Stiffness 9-13 kPa): Suggestive of compensated advanced chronic liver disease but need further test for confirmation. *Shear wave velocity between 2.1-2.4 m/s (Liver Stiffness 13-17 kPa): Rules in compensated advanced chronic liver disease. *Shear wave velocity greater than 2.4 m/s (Liver Stiffness over 17 kPa): Suggestive of clinically significant portal hypertension. QUALITY OF DATA SET: *IQR/Median value equal or less than 0.15 implies a quality data set. *IQR/Median value over 0.15 implies a poor quality data set. SIGNIFICANT CHANGE FROM PRIOR EXAM: Significant change if liver stiffness measurement is 10% or greater from prior exam. OTHER CONSIDERATIONS: The stage of liver fibrosis may be overestimated in the setting of acute hepatitis, liver inflammation, elevated liver function tests, hepatic vascular congestion, obstructive cholestasis, non-fasting state, and infiltrative diseases such as amyloidosis and lymphoma. In some patients with NAFLD, the liver stiffness thresholds for compensated advanced chronic liver disease may be lower. In causes other than viral hepatitis and NAFLD, liver stiffness thresholds are not well established. Electronically signed by: Chi De La Cruz MD 10/10/2024 10:21 AM EDT
--- OUTSIDE RECORDS SUMMARY | 2024-10-10 09:52 | XMS_ITS | Clinical Summary ---
Author Organization [facility] [address] [facility] Address [address] [place] [address] Phone Care Team Providers Care Hog Sticker Name Role Phone Katia Guerrier MD Primary Care Provider [phone] Allergies Active Allergy Reactions Criticality Noted Date [...] Care Team Description 08/01/2024 Telephone Urogynecology - [facility] [address] [place] [address] Mayelin Alegria MD URODYNAMICS from Last 3 Months Surgical History Surgery Date Site/Laterality Comments OTHER SURGICAL HISTORY 2004 PROCEDURE: ---- OTHER ----; COMMENT: uterine polyp removed VARICOSE VEIN SURGERY 03/07/2016 Bilateral PROCEDURE: FL LIGJ DIVJ &/EXCJ VARICOSE VEIN CLUSTER 1 LEG; COMMENT: laser ablation (RLE); 03/10/2016 (Right) phlebectomy OTHER SURGICAL HISTORY 05/08/2008 Right PROCEDURE: HISTORICAL SUBTOTAL THYROIDECTOMY UPPER GASTROINTESTINAL ENDOSCOPY 05/29/2011 PROCEDURE: FL UPPER GI ENDOSCOPY PERFORMED; COMMENT: GERD BREAST BIOPSY 05/14/2013 Left PROCEDURE: BX BREAST; PERC NEEDLE CORE W/IMAG GUID; COMMENT: 2 breast nodules UPPER GASTROINTESTINAL ENDOSCOPY 02/24/2008 PROCEDURE: FL UPPER GI ENDOSCOPY PERFORMED; COMMENT: small hiatal [...] First degree relatives with breast cancer; follows [facility] Vitamin D deficiency 04/12/2018 DX:Vitamin [...] Years (1 of 2 - PCV) 1989 Zoster Vaccines (1 of 2) 1989 Cervical Cancer Screening: Pap Smear 1991 Colorectal Cancer Screening: Colonoscopy 02/21/2022 Depression Screening 02/21/2022 HIV Screening 02/21/2022 Hepatitis C Screening 02/21/2022 Social Influencers of Health Screening 02/21/2022 Breast Cancer Screening 09/06/2023 09/06/19 22, 02/13/2020, 01/02/2019, Additional history exists Influenza Vaccine (#1) 2024 Cholesterol Screening (Lipid Panel) 02/17/2025 02/18/2020 [...] Procedure Name Priority Date/Time Associated Diagnosis Comments [facility] SCREENING DIGITAL Routine 09/05/2021 12:14 PM EDT Encounter for screening mammogram for malignant neoplasm of breast LIPID PANEL Routine 02/18/2020 from Last 3 Months or Most Recently Relevant to Health Maintenance Results * [facility] SCREENING DIGITAL (09/05/2021 12:14 PM EDT) Anatomical Region Laterality Modality Mammography 09/05/2021 7:55 AM EDT Narrative 09/05/2021 12:14 PM EDT [facility] Diagnostic Imaging Department [address] [place] [address] Patient: JOSE MARTIN KARINASAGAR D.O.B./Age/Sex: 1970 - 51 - F Unit#: [id number] Location/[facility] Mnemonic/Ordering Site: [facility] Ordering Physician: KATIA GUERRIER MD [facility] - 09/05/21826 EXAM: [facility] EXAM DATE AND TIME: 09/05/2021 8:27 AM HISTORY: Screening. Excisional biopsy of the left breast in 2021, pathology benign (myxoid fibroadenoma). Earlier bilateral breast biopsies, pathology benign. Family history of breast carcinoma including 2 paternal aunts and maternal grandmother. COMPARISON: 02/13/20, 01/02/19, 12/27/17, 02/17/15 TECHNIQUE: CC and MLO views of both breasts were obtained using full field digital mammography. Bilateral digital breast tomosynthesis was performed in the MLO projection. 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 TISSUE DENSITY: b. There [...] Routine screening mammogram BILATERAL in 1 year. [id number], [id number] 3342F, 7025F Dictating Physician: LUPILLO PILLAI MD Electronically Signed by: LUPILLO PILLAI MD Dic Date/Time: 09/05/21 121 Sign date/Time: 09/05/21 121 Procedure Note Lupillo Pillai MD - 03/15/2022 [facility] Diagnostic Imaging Department [address] [place] [address] Patient: JOSE MARTIN COLLINSSAGAR /Age/Sex: 1970 - 51 -F Unit#: [id number] Location/Status: [facility] Mnemonic/Ordering Site: [facility] Ordering Physician: KATIA GUERRIER MD [facility] Digital - 09/05/21826 EXAM: [facility] EXAM DATE AND TIME: [...] MLO projection. Computer aided detection with the [employer] Technology[employer] employed. TISSUE DENSITY: b. There are scattered [...] Routine screening mammogram BILATERAL in 1 year. 47955, 66741 3342F, 7025F Dictating Physician: LUPILLO PILLAI MD Electronically Signed by: LUPILLO PILLAI MD Dic Date/Time: 09/05/21 1212 Sign [...] Unknown Historical Provider LAB BLOOD ORDERABLES Preethi l Result from Last 3 Months or Most Recently Relevant to Health Maintenance Insurance [facility] Care Teams Hog Sticker Relationship Specialty Start Date End Date Katia Guerrier MD PCP - General Endocrinology 04/30/24
--- OUTSIDE RECORDS SUMMARY | 2024-10-10 09:52 | XMS_ITS | Clinical Summary ---
Author Organization [facility] Address [address] [place] [address] Phone Care Team Providers Care Semiconductor Engineer Name Role Phone Katia Guerrier MD Primary Care Provider [phone] Social History Tobacco Use Types Packs/Day Years Used Date Smoking Tobacco: Never Assessed Education Answer Date Recorded Are you interested in more education? Not on mauro e 12/06/2023 Are you concerned about learning? Not on file 12/06/2023 No 12/06/2023 No 12/06/2023 Digital Access Answer Date Recorded No 12/06/2023 No 12/06/2023 Reliable internet access at home? Not on file 12/06/2023 Device with a working camera? Not on file Comments Unknown Sex and Gender Information Value Date Recorded Sex Assigned at Not on file Legal Sex Female 9:34 PM EDT Gender Identity Not on file Sexual Orientation Not on file Plan of Treatment Health Maintenance Due Date Last Done Comments Adult Td,Tdap Booster 1970 LIPID PANEL 1970 DEPRESSION SCREENING 1982 SMOKING Hx and SMOKELESS TOB ACCO SCREENING 1983 HEPATITIS C SCREENING 1988 HIV ONE-TIME SCREENING (18-6 5 YEARS) 1988 PAP SMEAR 1991 MAMMOGRAM 2010 COLOGUARD 2015 COLONOSCOPY 2015 COLORECTAL CANCER SCREENING 2015 FIT TEST 2015 FOBT 2015 SIGMOIDOSCOPY 2015 VIRTUAL COLONOSCOPY 2015 PNEUMOCOCCAL VACCINES (50+ y ears) (1 of 1 - PCV) 2020 ZOSTER VACCINES (1 of 2) 2020 COVID-19 VACCINE (2023-2 5 season) 2023 HEPATITIS A VACCINES Aged Out No long er eligible based on patient's age to complete this topic HIB VACCINES Aged Out No longer eligi ble based on patient's age to complete this topic MENINGOCOCCAL VACCINES (ACWY) Aged Out No longer eligible based on patient's age to complete this topic MENINGOCOCCAL VACCINES (B) Aged Out N o longer eligible based on patient's age to complete this topic Medical Devices Not on file Insurance HMO POS HMO POS H[place] [address] [place] [address] [place], [place] [id number] [address] [place] [address] [place] [address] [place] [address] [facility] Care Teams Semiconductor Engineer Relationship Specialty Start Date End Date Katia Guerrier MD PCP - General Internal Medicine 11/28/23 Additional Source Comments The information contained in this document represents components of the legal health record. It is not the complete legal health record.[facility]
== END 2024-10-10 09:44 | disposition home or self-care (01) ==
LOC: HO.US 09:43
PROVIDERS: PCP Internal Medicine; Visit Provider Internal Medicine
DX: R79.89 Other specified abnormal findings of blood chemistry (principal); R10.9 Unspecified abdominal pain
CPT/HCPCS: 76705; 76981

== ENCOUNTER → 2024-10-10 09:45 | Outpatient (BNV) | payer BC, SELFPAY | PROVIDERS: PCP Internal Medicine; Visit Provider Radiology Diagnostic Radiology | DX: K76.0 Fatty (change of) liver, not elsewhere classified (principal) | CPT/HCPCS: 76705 ==

== ENCOUNTER 2024-10-28 09:01 | Outpatient (AMB) | payer BC, SELFPAY ==
--- NOTE | 2024-10-28 09:03 | MHC.PC.OV ---
Vital Signs 10/28/24 09:05 Height 5 ft 3 in Weight 191 lb 6 oz BMI 33.9 BP 104/72 Blood Pressure Location Rt brachial Position Sitting Respiration 12 Pulse 78 Pulse Source Pulse Oximeter Pulse Oximetry (%) 98 Oxygen Delivery Method Room Air Intake Visit Reasons: f/up fatigue Intake Note: Follow up fatigue Primary Care Physician Required: No Allergies benzocaine topical Allergy (Unknown, Uncoded 10/28/24 09:04) burning skin nuts Allergy (Unknown, Uncoded 10/28/24 09:04) burning skin nuts, peanuts Allergy (Unknown, Uncoded 10/28/24 09:04) anaphylaxis nuts, soy Allergy (Unknown, Uncoded 10/28/24 09:04) gi upset Tobacco use date assessed: 10/28/24 Dental Screening Dental Screen Date: 06/30/24 HPI HPI Comments History of Present Illness Details The patient is a 54 year old female with a past medical history of prediabetes, anxiety, GERD, hyperlipidemia, hypothyroid, elevated LFTs, ASCUS, memory loss presenting for follow up She has chronic overwhelming fatigue, muscle pain, neuralgia-left scalp, face and left torso, extremity. Was seeing [facility]. Previous EBV testing ~60,000. Repeated one month later here and normal. She has been taking lysine. She is worried she may go on to develop MS as she has family history and has had increasing symptoms and increasing difficulties with balance. . She has a family history of parkinson (dad). Ongoing cervical radicular symptoms but also with occipital neuralgia, neuritis, numbness/tingling in the bilateral legs. Continued fatigue, poor exercise tolerance. Saw [facility] neurology-advised to consider fibromyalgia treatment Cervical spine Multilevel cervical spondylosis C5 C7 resulting in reverse curvature at C5-6 and central spinal canal stenosis with likely cord compression at C5-6 and C6-7 levels. No cord edema and or myelopathy. Bilateral left greater than right neuroforamina stenosis C5-6 and C6-7. Multilevel T3 T9 spondylosis and levoconvex scoliosis apex at T3-4. No cord compression, cord edema and or myelopathy. Urogyn: continued severe menopausal hot flashes. She went to integrative medicine and was prescribed bioidentical hormone replacement. Currently not taking. She has seen urogyn at [facility] once and then the provider left. History of abnormal menses. Denia/menopausal. Had bulking procedure performed however no improvement in urinary incontinence. CV: Saw cardiology for increased exertional fatigue, mild shortness of breath. Had stress test. continues follow up-[facility]. Frequent low blood pressures. BH: 2022. Grief and depression well managemed. Has seen psych. Was on citalopram but intolerant side effects. Was on armodafinil for significant fatigue-had chest pain with this medication. Had more energy with adderall but worried that worsening memory so stopped. Was taking seroquel at night. She is troubled by ongoing memory changes. Worse over the past six months. Children tell her they are repeating themselves. She is not remembering things that happened in the last day, week. Feels like she has to concentrate on concentrating. She was seen for this previously. Did have an MRI-this showed microvascular disease. Dad had parkinsons, memory problems. She was evaluated by the memory clinic and diagnosed with MDD. She knows she still grieves but can differentiate this from her symptoms History of prediabetes-continues to work out regularly, eat healthy. She took mounjaro with good effect previously Hypothyroid: TSH has been within goal on levothyroxine. History of left partial thyroidectomy. Was previously hyperthyroid GERD: Stable. Saw GI-[facility]. On pepcid omeprazole. Had liver elastography ruling out advanced liver disease Mammo UTD, pap UTD. Had colonoscopy 10/2020. LMP in July 2023 ROS see HPI PHYSICAL EXAM: GENERAL: Alert and oriented x 3. NAD EYES: EOMI. Anicteric. HENT: Moist mucous membranes. left paratracheal node LUNGS: Clear to auscultation bilaterally. CARDIOVASCULAR: Regular rate and rhythm. No murmur. No JVD. ABDOMEN: Soft, non-tender +bs EXTREMITIES: No edema. Non-tender. SKIN: No rashes or lesions. Warm. NEUROLOGIC: No focal neurological deficits. CN II-XII grossly intact PSYCHIATRIC: Cooperative. Appropriate mood and affect [facility] Medical History Loss of height Right ankle pain Prediabetes Obesity, Class I, BMI 30-34.9 Lumbar radiculopathy Low back pain Hypothyroidism Elevated LFTs Depression Anxiety Surgical History History of colonoscopy (~11/18/20) H/O abdominoplasty Family History Father Parkinson disease Mother No problems noted. 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 1. Little interest or pleasure in doing things: nearly every day 2. Feeling down, depressed, or hopeless: nearly every day 3. Trouble falling or staying asleep, or sleeping too much: nearly every day 4. Feeling tired or having little energy: nearly every day 5. Poor appetite or overeating: several days 6. Feeling bad about yourself - or that you are a failure or have let yourself or your family down: several days 7. Trouble concentrating on things, such as reading the newspaper or watching television: several days 8. Moving or speaking so slowly that other people could have noticed. Or the opposite - being so fidgety or restless that you have been moving around a lot more than usual: several days 9. Thoughts that you would be better off or of hurting yourself in some way: not at all Total score: 16 Depression Screening Interpretation: Positive Depression Screening Follow-up: Existing condition and In treatment Depression Screening Done: Yes 41792 - PHQ-9 Billing: Yes Source: Developed by Drs. Chi Melgar, Eboni Renner, Roberto Bertrand and colleagues, with an educational toni from [employer]. Thrive Questionnaire I am a: Patient What is your living situation today?: I have a steady place to live Within the past 12 months, did the food you bought not last and you didn't have the money to get more?: I choose not to answer this question Within the past 12 months, did you worry whether your food would run out before you got money to buy more?: Never true Do you have trouble paying for medicines?: I choose not to answer this question Do you have trouble getting transportation to medical appointments?: No Do you have trouble paying your heating and electricity bill?: No Do you have trouble taking care of your child, family member or friend?: I choose not to answer this question Do you have trouble with day-to-day activities such as bathing, preparing meals, shopping, managing finances, etc.?: I choose not to answer this question Are you currently unemployed and looking for a job?: No Are you interested in more education?: Yes Please select the resources that you would like help with: Daily support and Education Currently or been in a relationship where the following occur: No concerns reported THRIVE Score: 0 AUDIT C Alcohol Use Questionnaire (AUDIT-C) 1. How often do you have a drink containing alcohol?: 2-4 times a month 2. How many drinks containing alcohol do you have on a typical day when you are drinking?: 3 or 4 3. How often do you have six or more drinks on one occasion?: Less than monthly Total Score: 4 RAJAN-7 AMB Questionnaire RAJAN-7 Feeling nervous, anxious, or on edge: 3 = Nearly every day Not being able to stop or control worryin = Nearly every day Worrying too much about different things: 2 = More than half the days Trouble relaxin = Several days Being so restless that it is hard to sit still: 0 = Not at all Becoming easily annoyed or irritable: 1 = Several days Feeling afraid as if something awful might happen: 2 = More than half the days Total RAJAN-7 score (0-4 normal; 5-9 mild; 10-14 moderate; 15-21 severe): 12 Source: Developed by Drs. Chi Melgar, Eboni Renner, Roberto Bertrand and colleagues, with an educational toni from [employer]. Physical exam (Primary Care) Vital Signs: Last Vital Signs Pulse 78 10/28/24 09:05 Resp 12 10/28/24 09:05 BP 104/72 10/28/24 09:05 Pulse Ox 98 10/28/24 09:05 Oxygen Delivery Method Room Air 10/28/24 09:05 BMI result Body Mass Index 33.9 Tobacco/Smoking Status: Tobacco use Status Tobacco use date assessed 10/28/24 10/28/24 09:08 Patient Tobacco Use Status Former Tobacco user 10/28/24 09:08 e-Cigarette/Vaping Use Never Used 10/28/24 09:08 PHQ-9: PHQ-9 Score PHQ-9: Total score 16 11/02/24 21:04 Depression Screening Interpretation: Positive Depression Screening Follow-up: Existing condition and In treatment Currently or been in a relationship where the following occur: No concerns reported Coding Level of Care Code Est Pt Level 5 (36302) Complex EM visit Add On G2211 Diagnoses Numbness and tingling R20.0; R20.2 Fatigue, unspecified type R53.83 Fatigue type: unspecified Memory loss R41.3 Additional Codes PHQ-9 - 83167 - PHQ-9 Billing: Yes ([id number]) Time Spent (min) 62 Assessment & Plan Assessment & Plan (1) Numbness and tingling: Code(s): R20.0 - Anesthesia of skin; R20.2 - Paresthesia of skin Category: Medical (2) Fatigue: Code(s): R53.83 - Other fatigue Category: Medical Qualifiers: Fatigue type: unspecified Qualified Code(s): R53.83 - Other fatigue (3) Memory loss: Code(s): R41.3 - Other amnesia Category: Medical Plan Ongoing constellation of symptoms Cervical radiculopathy-refer NS. Discussed occpital neuralgia, LE numbness tingling, fatigue likely multifactorial. Will have her see neurology at [facility] for evaluation of all her symptoms and potential underlying neurologic cause Urinary incontinence-referral urogynecology. MRI lumbar spine Orders: Orders MR lumbar spine wo con 10/28/24 M51.369 - Other intervertebral disc degeneration, lumbar region without mention of lumbar back pain or lower extremity pain, R32 - Unspecified urinary incontinence Referrals Urogynecology Referral R32 - Unspecified urinary incontinence Neurology Referral M79.2 - Neuralgia and neuritis, unspecified, R27.0 - Ataxia, unspecified, R53.83 - Other fatigue Neurosurgery Referral M54.12 - Radiculopathy, cervical region, M79.2 - Neuralgia and neuritis, unspecified
[2024-10-28 09:05] VITALS: BP 104/72; PULSE 78; RESP 12; O2SAT 98; BMI 33.9
--- OUTSIDE RECORDS SUMMARY | 2024-10-28 09:19 | XMS_ITS | Clinical Summary ---
Author Organization [facility] [address] [facility] Address [address] [place] [address] Phone Care Team Providers Care Facilities Locator Name Role Phone Katia Guerrier MD Primary Care Provider [phone] Allergies Active Allergy Reactions Criticality Noted Date [...] Care Team Description 08/01/2024 Telephone Urogynecology - [place] [address] [place] [address] Mayelin Alegria MD URODYNAMICS from Last 3 Months Surgical History Surgery Date Site/Laterality Comments OTHER SURGICAL HISTORY 2004 PROCEDURE: ---- OTHER ----; COMMENT: uterine polyp removed VARICOSE VEIN SURGERY 03/07/2016 Bilateral PROCEDURE: CT LIGJ DIVJ &/EXCJ VARICOSE VEIN CLUSTER 1 LEG; COMMENT: laser ablation (RLE); 03/10/2016 (Right) phlebectomy OTHER SURGICAL HISTORY 05/08/2008 Right PROCEDURE: HISTORICAL SUBTOTAL THYROIDECTOMY UPPER GASTROINTESTINAL ENDOSCOPY 05/29/2011 PROCEDURE: CT UPPER GI ENDOSCOPY PERFORMED; COMMENT: GERD BREAST BIOPSY 05/14/2013 Left PROCEDURE: BX BREAST; PERC NEEDLE CORE W/IMAG GUID; COMMENT: 2 breast nodules UPPER GASTROINTESTINAL ENDOSCOPY 02/24/2008 PROCEDURE: CT UPPER GI ENDOSCOPY PERFORMED; COMMENT: small hiatal [...] First degree relatives with breast cancer; follows [facility] [place], [facility] Vitamin D deficiency 04/12/2018 DX:Vitamin [...] Smear 1991 Colorectal Cancer Screening: Colonoscopy 02/21/2022 HIV Screening 02/21/2022 Hepatitis C Screening 02/21/2022 Social Influencers of Health Screening 02/21/2022 Breast Cancer Screening 09/06/2023 09/06/19 22, 02/13/2020, 01/02/2019, Additional history exists Depression Screening 03/26/2024 Influenza Vaccine (#1) 2024 Cholesterol Screening (Lipid [...] Procedure Name Priority Date/Time Associated Diagnosis Comments [facility] SCREENING DIGITAL Routine 09/05/2021 12:14 PM EDT Encounter for screening mammogram for malignant neoplasm of breast LIPID PANEL Routine 02/18/2020 from Last 3 Months or Most Recently Relevant to Health Maintenance Results * [facility] SCREENING DIGITAL (09/05/2021 12:14 PM EDT) Anatomical Region Laterality Modality Mammography 09/05/2021 7:55 AM EDT Narrative 09/05/2021 12:14 PM EDT [facility] Diagnostic Imaging Department [address] [place] [address] Patient: JOSE MARTIN KARINASAGAR D.O.B./Age/Sex: 1970 - 51 - F Unit#: [id number] Location/Status[facility]Ordering Site: [facility] Ordering Physician: KATIA GUERRIER MD [facility] Screening Digital - 09/05/21826 EXAM: [facility] Screening Digital EXAM DATE AND [...] MLO projection. 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 TISSUE DENSITY: b. There [...] Routine screening mammogram BILATERAL in 1 year. [address]03, [id number] 3342F, 7025F Dictating Physician: LUPILLO PILLAI MD Electronically Signed by: LUPILLO PILLAI MD Dic Date/Time: 09/05/21 121 Sign date/Time: 09/05/21 121 Procedure Note Lupillo Pillai MD - 03/15/2022 [facility] Diagnostic Imaging Department [address] [place] [address] Patient: JOSE MARTIN COLLINSSAGAR /Age/Sex: 1970 - 51 -F Unit#: [id number] Location/Status: [facility] Mnemonic/Ordering Site: [facility] Ordering Physician: KATIA GUERRIER MD [facility] Screening Digital - 09/05/21826 EXAM: [facility] Screening Digital EXAM DATE AND [...] MLO projection. 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 TISSUE DENSITY: b. There are scattered [...] Routine screening mammogram BILATERAL in 1 year. 11939, 92382 3342F, 7025F Dictating Physician: LUPILLO PILLAI MD [...] Maintenance Insurance [facility] Care Teams Facilities Locator Relationship Specialty Start Date End Date Katia Guerrier MD PCP - General Endocrinology 04/30/24
--- OUTSIDE RECORDS SUMMARY | 2024-10-28 09:19 | XMS_ITS | Clinical Summary ---
Author Organization [facility] Address [address] [place] [address] Phone Care Team Providers Care Solar Sales Ambassador Name Role Phone Katia Theodore MD Primary Care Provider Social History Tobacco Use Types Packs/Day Years [...] POS HMO POS HMO POS O POS HMO [place] [address] [place] [id number] [address] [place] [address] [place] [address] [place] [address] [facility] Care Teams Solar Sales Ambassador Relationship Specialty Start Date End Date Katia Theodore MD PCP - General Internal Medicine 11/28/23 Additional Source Comments The information contained in this document represents components of the legal health record. It is not the complete legal health record.[facility]
== END 2024-10-28 11:22 | disposition home or self-care (01) ==
LOC: HO.HMCFM 09:02
PROVIDERS: PCP Internal Medicine; Visit Provider Internal Medicine
DX: R20.0 Anesthesia of skin (principal); R20.2 Paresthesia of skin; R53.83 Other fatigue; R41.3 Other amnesia

== ENCOUNTER → 2024-10-28 09:01 | Outpatient (BNVA) | payer BC, SELFPAY | PROVIDERS: PCP Internal Medicine; Visit Provider Internal Medicine | DX: Z13.31 Encounter for screening for depression (principal); R20.0 Anesthesia of skin; R20.2 Paresthesia of skin; R53.83 Other fatigue; R41.3 Other amnesia | CPT/HCPCS: 96127 ==

== ENCOUNTER 2024-12-11 18:00 | Outpatient (REF) | payer BC, SELFPAY ==
--- NOTE | ~2024-12-11 | MR_ITS ---
EXAMINATION: MR LUMBAR SPINE WITHOUT IV CONTRAST History: R32 - Unspecified urinary incontinence Technique: Sagittal T1, T2 and STIR, and axial T1 and T2 weighted images of the lumbar spine were obtained per departmental protocol. Comparison: There are no prior studies available for comparison. Findings: The vertebral bodies maintain normal height, alignment, and marrow signal intensity. There is mild degenerative disc disease with disc desiccation and loss of disc height. At T12-L1,there is no evidence of disc herniation, central spinal stenosis, or neural foraminal narrowing. At L1-2, there is a mild disc bulge. There is no central spinal or neural foraminal stenosis. At L2-3, there is a moderate disc bulge with a superimposed central disc protrusion with annular tear. There is mild facet and ligamentum flavum hypertrophy without central spinal or neural foraminal stenosis. At L3-4, there is a mild disc bulge which is asymmetric to the left. There is facet and ligamentum flavum hypertrophy with resultant mild narrowing of the left neural foramen. At L4-5, there is a mild disc bulge. There is facet and ligamentum flavum hypertrophy without central spinal or neural foraminal stenosis. At L5-S1, there is a moderate central/right paramedian disc protrusion which effaces the anterior epidural fat. There is no central spinal or neural foraminal stenosis. The conus terminates at the T12-L1 level and demonstrates normal signal intensity. The visualized paraspinal soft tissues are unremarkable. MR/MR lumbar spine wo con Impression: 1. Mild degenerative disc disease. 2. Moderate disc bulge with superimposed central disc protrusion with annular tear at the L2-3 level. 3. Mild left neural foraminal stenosis at the L3-4 level secondary to an asymmetric disc bulge and facet and ligamentum flavum hypertrophy. 4. Moderate central/right paramedian disc protrusion at the L5-S1 level. Electronically signed by: Chi De La Cruz MD 12/12/2024 07:56 AM EDT
--- OUTSIDE RECORDS SUMMARY | 2024-12-11 18:04 | XMS_ITS | Clinical Summary ---
Author Organization [facility] Address [address] [facility] [address] [place] [address] Phone Care Team Providers Care Supervisor Plasma Name Role Phone Katia Theodore MD Primary [...] Orientation Not on file Plan of Treatment Upcoming Encounters Date Type Department Care Team (Late st Contact Info) Description 08/05/2025 1:00 PM EDT Office [place] [facility] [place]rology [address] [facility], 8th Floor, [address] [place] [address] Declan Garcia MD, MSc [address] [place] [address] [id number] [place] [address] [email or web address] Maintenance Due Date Last Done Comments [...] 2020 ZOSTER VACCINES (1 of 2) 2020 INFLUENZA VACCINE (#1) 2024 COVID-19 VACCINE (1 - 2023-2 5 season) 2024 HEPATITIS A VACCINES Aged Out No long [...] Devices Not on file Insurance HMO [place] [address] [place] [address] [place] [address] [place] [address] [place] [address] [place] [address] [place] [address] [place] [place] [address] [place] [address] [place] [place] [address] [place] [address] HMO POS Care Teams Supervisor Plasma Relationship Specialty Start Date End Date Katia Theodore MD PCP - General Internal Medicine 11/28/23 Additional Source Comments The information contained in this document represents components of the legal health record. It is not the complete legal health record.[facility]
== END 2024-12-11 18:01 | disposition home or self-care (01) ==
LOC: HO.MRI 18:00
PROVIDERS: PCP Internal Medicine; Visit Provider Internal Medicine
DX: M51.369 Other intervertebral disc degeneration, lumbar region without mention of lumbar back pain or lower extremity pain (principal); R32 Unspecified urinary incontinence; M48.061 Spinal stenosis, lumbar region without neurogenic claudication; M51.27 Other intervertebral disc displacement, lumbosacral region
CPT/HCPCS: 72148

== ENCOUNTER → 2024-12-11 18:05 | Outpatient (BNV) | payer BC, SELFPAY | PROVIDERS: PCP Internal Medicine; Visit Provider Radiology Diagnostic Radiology | DX: M51.26 Other intervertebral disc displacement, lumbar region (principal) | CPT/HCPCS: 72148 ==

== ENCOUNTER 2025-01-12 14:33 | Outpatient (AMB) | payer BC, SELFPAY ==
--- NOTE | 2025-01-12 14:38 | MHC.PC.OV ---
Vital Signs 01/12/25 14:41 Height 5 ft 3 in BMI Reason not done Patient refused/unable BP 120/82 Blood Pressure Location Rt brachial Position Sitting Respiration 18 Pulse 76 Pulse Source Pulse Oximeter Temp 98.2 F Temp Source Oral Pulse Oximetry (%) 98 Oxygen Delivery Method Room Air Intake Visit Reasons: follow up Intake Note: follow up Tool Planer Set Up Operator Required: No Allergies benzocaine topical Allergy (Unknown, Uncoded 10/28/24 09:04) burning skin nuts Allergy (Unknown, Uncoded 10/28/24 09:04) burning skin nuts, peanuts Allergy (Unknown, Uncoded 10/28/24 09:04) anaphylaxis nuts, soy Allergy (Unknown, Uncoded 10/28/24 09:04) gi upset Tobacco use date assessed: 01/12/25 Dental Screening Dental Screen Date: 01/12/25 Did you have a dental visit in the last 12 months?: No Did you have a dental problem in the last 6 months where you did not have access to dental care?: No Was dental information given to patient?: Patient has dentist HPI HPI Comments History of Present Illness Details The patient is a 54 year old female with a past medical history of prediabetes, anxiety, GERD, hyperlipidemia, hypothyroid, elevated LFTs, ASCUS, memory loss presenting for follow up Urogyn: Patient had episode of PMB after not having menses since July 2023. She is seeing Dr Phan who recommend sonohysterogram with endometrial biopsy. Improved menopausal hot flashes. She is on bioidentical hormone replacement. She has seen urogyn at [place]-saw once and then the provider left. History of abnormal menses. Denia/menopausal. Had bulking procedure performed however no improvement in urinary incontinence. She recently started dating again but is having some issues with vaginal dryness CV: Saw cardiology for increased exertional fatigue, mild shortness of breath. Had stress test. continues follow up-[facility]. Frequent low blood pressures. BH: 2022. Grief and depression well managed. Has seen psych. Was on citalopram but intolerant side effects. Was on armodafinil for significant fatigue-had chest pain with this medication. Had more energy with adderall but worried that worsening memory so stopped. Was taking seroquel at night. She is troubled by ongoing memory changes. Worse over the past six months. Children tell her they are repeating themselves. She is not remembering things that happened in the last day, week. Feels like she has to concentrate on concentrating. She was seen for this previously. Did have an MRI-this showed microvascular disease. Dad had parkinsons, memory problems. She did see the memory clinic-MDD History of prediabetes-continues to work out regularly, eat healthy. She took mounjaro with good effect previously Hypothyroid: TSH has been within goal on levothyroxine. History of left partial thyroidectomy. Was previously hyperthyroid GERD: Stable. Saw GI-[facility]. On pepcid omeprazole. Had liver elastography ruling out advanced liver disease Neuro: chronic overwhelming fatigue, muscle pain, neuralgia-left scalp, face and left torso, extremity. Was seeing [facility]. Previous EBV testing ~60,000. Repeated one month later here and normal. She has been taking lysine. She is worried she may go on to develop MS as she has family history and has had increasing symptoms and increasing difficulties with balance. . She has a family history of parkinson (dad). Ongoing cervical radicular symptoms but also with occipital neuralgia, neuritis, numbness/tingling in the bilateral legs. Continued fatigue, poor exercise tolerance. Saw [facility] neurology-advised to consider fibromyalgia treatment MSK: Cervical spine Multilevel cervical spondylosis C5 C7 resulting in reverse curvature at C5-6 and central spinal canal stenosis with likely cord compression at C5-6 and C6-7 levels. No cord edema and or myelopathy. Bilateral left greater than right neuroforamina stenosis C5-6 and C6-7. Multilevel T3 T9 spondylosis and levoconvex scoliosis apex at T3-4. No cord compression, cord edema and or myelopathy. Mammo UTD, pap UTD. Had colonoscopy 10/2020. ROS see HPI PHYSICAL EXAM: GENERAL: Alert and oriented x 3. NAD EYES: EOMI. Anicteric. HENT: Moist mucous membranes. left paratracheal node LUNGS: Clear to auscultation bilaterally. CARDIOVASCULAR: Regular rate and rhythm. No murmur. No JVD. ABDOMEN: Soft, non-tender +bs EXTREMITIES: No edema. Non-tender. SKIN: No rashes or lesions. Warm. NEUROLOGIC: No focal neurological deficits. CN II-XII grossly intact PSYCHIATRIC: Cooperative. Appropriate mood and affect [facility] Medical History (Updated 01/15/25 @ 17:55 by Katia Guerrier MD) Ataxia Loss of height Right ankle pain Prediabetes Obesity, Class I, BMI 30-34.9 Lumbar radiculopathy Low back pain Hypothyroidism Elevated LFTs Depression Anxiety Surgical History History of colonoscopy (~11/18/20) H/O abdominoplasty Family History Father Parkinson disease Mother No problems noted. 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 Current occupational exposures/hazards: Yes (around blood ) Cognitive needs: No Hearing needs: No Vision needs: No Questionnaire Thrive Questionnaire Date Thrive assessed: 10/28/24 I am a: Patient What is your living situation today?: I have a steady place to live Within the past 12 months, did the food you bought not last and you didn't have the money to get more?: I choose not to answer this question Within the past 12 months, did you worry whether your food would run out before you got money to buy more?: Never true Do you have trouble paying for medicines?: I choose not to answer this question Do you have trouble getting transportation to medical appointments?: No Do you have trouble paying your heating and electricity bill?: No Do you have trouble taking care of your child, family member or friend?: I choose not to answer this question Do you have trouble with day-to-day activities such as bathing, preparing meals, shopping, managing finances, etc.?: I choose not to answer this question Are you currently unemployed and looking for a job?: No Are you interested in more education?: Yes Currently or been in a relationship where the following occur: No concerns reported THRIVE Score: 0 RAJAN-7 AMB Questionnaire RAJAN-7 Date RAJAN - 7 assessed: 01/12/25 Source: Developed by Drs. Chi Melgar, Eboni Renner, Roberto Bertrand and colleagues, with an educational toni from [employer]. RAJAN-7 Assessment Billing RAJAN-7 Assessment Tool: RAJAN-7 Assessment 10620 Physical exam (Primary Care) Vital Signs: Last Vital Signs Temp 98.2 F 01/12/25 14:41 Pulse 76 01/12/25 14:41 Resp 18 01/12/25 14:41 BP 120/82 01/12/25 14:41 Pulse Ox 98 01/12/25 14:41 Oxygen Delivery Method Room Air 01/12/25 14:41 Tobacco/Smoking Status: Tobacco use Status Tobacco use date assessed 01/12/25 01/12/25 14:45 Patient Tobacco Use Status Former Tobacco user 01/12/25 14:45 e-Cigarette/Vaping Use Never Used 01/12/25 14:45 Thrive Assessment: Date of Thrive Assessment Date Thrive assessed 10/28/24 01/12/25 14:45 Currently or been in a relationship where the following occur: No concerns reported Coding Level of Care Code Est Pt Level 4 (57026) Diagnoses Prediabetes R73.03 Post-menopausal bleeding N95.0 Postoperative hypothyroidism E89.0 Hypothyroidism type: postoperative Lumbar degenerative disc disease M51.369 Additional Codes RAJAN-7 Assessment Billing - RAJAN-7 Assessment Tool: RAJAN-7 Assessment 68829 ([id number]) Assessment & Plan Assessment & Plan (1) Prediabetes: Code(s): R73.03 - Prediabetes Category: Medical (2) Post-menopausal bleeding: Code(s): N95.0 - Postmenopausal bleeding Category: Medical (3) Hypothyroidism: Code(s): E03.9 - Hypothyroidism, unspecified Category: Medical Qualifiers: Hypothyroidism type: postoperative Qualified Code(s): E89.0 - Postprocedural hypothyroidism (4) Lumbar degenerative disc disease: Code(s): M51.369 - Other intervertebral disc degeneration, lumbar region without mention of lumbar back pain or lower extremity pain Category: Medical Plan 54 year old for follow up PMB following up for endometrial biopsy Vaginal dryness, anorgasmia-trial wellbutrin Chronic medical conditions stable Medications: New bupropion HCl XL (Wellbutrin XL) 150 mg PO QAM 90 tabs 3RF
[2025-01-12 14:41] VITALS: BP 120/82; PULSE 76; RESP 18; TEMP 36.8; O2SAT 98
--- OUTSIDE RECORDS SUMMARY | 2025-01-12 18:19 | XMS_ITS | Encounter Summary ---
Author Organization [facility] Address [address] [place] [address] Phone Care Team Providers Care Senior Software Manager Name Role Phone Katia Theodore MD Primary Care Provider + [phone] Encounter Details Date Type Department Care Team (Late st Contact Info) Description 12/16/2024 Procedure Pass [facility], Ct Scan - [address] [address] Social History Tobacco Use Types Packs/Day Years Used Date Smoking Tobacco: Never Assessed Education Answer Date Recorded Are you interested in more education? Not on mauro e 12/06/2023 Are you concerned about learning? Not on file 12/06/2023 No 12/06/2023 No 12/06/2023 Food Answer Date Recorded Within the past 6 months we worried whether our food would run out before we got money to buy more. Never True 12/16/2024 Within the past 6 months the food we bought just didn't last and we didn't have enough money to get more. Never True Residential Stability Answer Date Recor ded What is your housing situation today? I have kristan sing 12/16/2024 How many times have you move d in the past 12 months? Zero (I did not move) 12/16/2024 Paying for Meds Answer Date Recorded Do you have trouble paying for medicines? No 12/16/2024 Paying Utility Bills Answer Date Record ed Do you have trouble paying your heating or elect ricity bill? No 12/16/2024 Transportation Answer Date Recorded Has the lack of transportati on kept you from medical appointments or from getting medications? No 12/16/2024 Digital Access Answer Date Recorded No 12/16/2024 Yes 12/16/2024 Do you have reliable internet access at home? Ye s 12/16/2024 Do you have a device (e.g., phone, tablet, computer) with a working camera? Yes 12/16/2024 Intimate Partner Violence Answer Date R ecorded Are you denied basic needs s uch as food, clothing, or medical care? No 12/16/2024 In the past 12 months have y ou been in a relationship with a person who hurts, threatens, or tries to control you? No 12/16/2024 Are you denied basic needs s uch as food, clothing, or medical care? No 12/16/2024 In the past 12 months have y ou been in a relationship with a person who hurts, threatens, or tries to control you? No 12/16/2024 Comments Unknown Sex and Gender Information Value Date Recorded Sex Assigned at Not on file Legal Sex Female 9:34 PM EDT Gender Identity Not on file Sexual Orientation Not on file documented as of this encounter Functional Status * Calculated C-SSRS Risk Score (Lifetime/Recent) Answer Date of Assessment Author No Risk Indicated 12/16/2024 4:19 PM EDT Swathi Dahl RN * [place] Suicide Severity Rating Scale (Screener/Recent Self-Report) Question Answer Date of Assessment Author 1. Wish to be (Past 1 Month) No 025 4:19 PM EDT Swathi Dahl RN 2. Non-Specific Active Suici demarco Thoughts (Past 1 Month) No 12/16/2024 4:19 PM EDT Swathi Dahl RN 6. Suicidal Behavior (Lifetime) No 5 4:19 PM EDT Swathi Dahl RN documented as of this encounter Plan of Treatment Upcoming Encounters Date Type Department Care Team (Late st Contact Info) Description 08/05/2025 1:00 PM EDT Office Visit [facility] [place]rology [address], 8th Floor, [address] [place] [address] Declan Garcia MD, MSc [address] [place] [address] [email or web address] documented as of this encounter Visit Diagnoses Not on filedocumented in this encounter Care Teams Senior Software Manager Relationship Specialty Start Date End Date Katia Theodore MD [address] [place] [address] [place] [address] PCP - General Internal Medicine 11/28/23 documented as of this encounter Additional Source Comments The information contained in this document represents components of the legal health record. It is not the complete legal health record.[facility]
--- OUTSIDE RECORDS SUMMARY | 2025-01-12 18:19 | XMS_ITS | Clinical Summary ---
Author Organization [facility] Address [address] [place] [id number] Phone Care Team Providers Care Automobile Parker Name Role Phone Katia Theodore MD Primary Care Provider [phone] Allergies Active Allergy Reactions Criticality Noted Date Comments Nut - Unspecified 04/10/2018 Medications No known medications Encounters Date Type Department Care Team Description 12/16/2024 5:25 PM EDT - 12/16/2024 8:42 PM EDT Emergency [facility] [address] [place] [address] Leobardo Fenton MD Discharge Disposition: Home or Self Care 12/16/2024 Procedure [facility] Scan - [facility] [address] [place] [address] from Last 3 Months Social History Tobacco Use Types Packs/Day Years [...] on file Sexual Orientation Not on file Last Filed Vital Signs Vital Sign Reading Time Taken Comments Blood Pressure 140/95 12/16/2024 7:32 PM EDT Pulse 66 12/16/2024 7:32 PM EDT Temperature 36.2 C (97.2 F) 12/16/2024 7:32 PM EDT Respiratory Rate 16 12/16/2024 7:32 PM EDT Oxygen Saturation 100% 12/16/2024 7:32 PM EDT Inhaled Oxygen Concentration - - Weight 83.9 kg (185 lb) 12/16/2024 4:17 PM EDT Height 162.6 cm (5' 4 ) 12/16/2024 4:17 PM EDT Body Mass Index 31.76 12/16/2024 4:17 PM EDT Plan of Treatment Upcoming Encounters Date Type Department Care Team (Late st Contact Info) Description 08/05/2025 1:00 PM EDT Office Visit [facility] Department of Neurology [address], [address], [address] [place] [address] Declan Garcia MD, MSc [address] [facility] [id number] [place] [address] [email or web address] Maintenance Due Date Last Done Comments Adult Td,Tdap Booster 1970 DEPRESSION SCREENING 1982 SMOKING Hx and [...] VACCINE (#1) 2024 COVID-19 VACCINE (1 - 2024-2 6 season) 2024 LIPID PANEL 02/17/2025 02/18/2020 SCREENING FOR DIABETES 12/17/2027 12/16/2024 RSV VACCINE (1 - 1-dose 75+ series) 2045 HEPATITIS A VACCINES Aged Out No long [...] this topic Medical Devices Not on file Procedures Procedure Name Priority Date/Time Associated Diagnosis Comments CT ABDOMEN/PELVIS WITHOUT CONTRAST Routine 12/16/2024 6:43 PM EDT LIPASE STAT 12/16/2024 4:47 PM EDT LFTS (HEPATIC PANEL) STAT 12/16/2024 4:47 PM EDT HCG, SERUM QUALITATIVE STAT 12/16/2024 4:47 PM EDT BASIC METABOLIC PANEL STAT 12/16/2024 4:47 PM EDT CBC AND DIFFERENTIAL STAT 12/16/2024 4:47 PM EDT URINALYSIS W/REFLEX URINE CULTURE STAT 12/16/2024 4:46 PM EDT from Last 3 Months Results * CT ABDOMEN/PELVIS WITHOUT CONTRAST (12/16/2024 6:43 PM EDT) Anatomical Region Laterality Modality Abdomen, Pelvis Computed Tomogra phy 12/16/2024 7:41 PM EDT Impressions 12/16/2024 7:54 PM EDT No acute abnormality in the abdomen or pelvis. Narrative 12/16/2024 7:[address] ABDOMEN/PELVIS WITHOUT CONTRAST Referring clinician's provided indication for this examination in [facility]: * Abdominal pain, acute, nonlocalized TECHNIQUE: Multidetector-row CT of the abdomen and pelvis was performed without administration of intravenous contrast using tailored dose modulation techniques. Images were reconstructed in the axial, coronal, and sagittal planes. COMPARISON: None FINDINGS: Lower Chest: No consolidation or pleural effusions. Liver: No focal lesions. Biliary: Normal gallbladder. No biliary ductal dilatation. Spleen: No splenomegaly or focal lesions. Pancreas: No masses or ductal dilatation. Adrenal Glands: No nodules. Kidneys/Ureters: No solid masses, stones, or hydronephrosis. Bowel: Normal appendix. Normal small bowel and colon. Peritoneum/Retroperitoneum: No masses, pneumoperitoneum, or fluid. Lymph Nodes: No lymphadenopathy. Pelvic Organs/Bladder: No mass. Vessels: No abdominal aortic aneurysm. Bones/Soft Tissues: No significant abnormality. Procedure Note Sophia Allen MD - 12/16/2024 CT ABDOMEN/PELVIS WITHOUT CONTRAST Referring clinician's provided indication for this examination in Epic: *Abdominal pain, acute, nonlocalized TECHNIQUE: Multidetector-row CT of the abdomen and pelvis was performedwithout administration of intravenous contrast using tailored dosemodulation techniques. Images were reconstructed in the axial, coronal,and sagittal planes. COMPARISON: None FINDINGS: Lower Chest: No consolidation or pleural effusions. Liver: No focal lesions. Biliary: Normal gallbladder. No biliary ductal dilatation. Spleen: No splenomegaly or focal lesions. Pancreas: No masses or ductal dilatation. Adrenal Glands: No nodules. Kidneys/Ureters: No solid masses, stones, or hydronephrosis. Bowel: Normal appendix. Normal small bowel and colon. Peritoneum/Retroperitoneum: No masses, pneumoperitoneum, or fluid. Lymph Nodes: No lymphadenopathy. Pelvic Organs/Bladder: No mass. Vessels: No abdominal aortic aneurysm. Bones/Soft Tissues: No significant abnormality. IMPRESSION: No acute abnormality in the abdomen or pelvis. us Leobardo Fenton MD IMG CT ABD/PELVIS Final Result * HCG, serum qualitative (12/16/2024 4:47 PM EDT) HCG, QUALITATIVE Negative Negative IU/L [facility] Blood 12/16/2024 4:47 PM EDT 12/16/2024 5:29 PM EDT us Travon Faustin MD LAB BLOOD ORDERABLES Fin al Result Performing Organization Address City/State/[facility] Co de Phone Number [address] [address] * LFTs (hepatic panel) (12/16/2024 4:47 PM EDT) ALKALINE PHOSPHATASE 91 39 - 117 U/L [facility] TOTAL BILIRUBIN 0.4 0.0 - 1.2 mg/dL [facility] DIRECT BILIRUBIN 0.1 0.0 - 0.2 mg/dL [facility] Bilirubin (Indirect) NOT CALCULATED 0 - 1.5 mg/dL [facility] AST 19 0 - 37 U/L [facility] ALT 23 0 - 40 U/L [facility] TOTAL PROTEIN 7.8 6.5 - 8.0 g/dL [facility] ALBUMIN 4.6 3.9 - 4.8 g/dL [facility] GLOBULIN 3.2 1 - 4.8 g/dL [facility] A/G Ratio 1.44 1.00 - 4.80 RATIO [facility] Blood 12/16/2024 4:47 PM EDT 12/16/2024 5:29 PM EDT us Travon Faustin MD LAB BLOOD ORDERABLES Fin al Result [facility] [address] [place], [place] [id number] * CBC and differential (12/16/2024 4:47 PM EDT) WBC 8.63 4.00 - 11.00 K/uL [facility] RBC 4.48 4.00 - 5.20 M/uL [facility] HGB 13.2 12.0 - 16.0 g/dL [facility] HCT 40.6 36.0 - 46.0 % [facility] PLT 275 150 - 450 K/uL [facility] MCV 90.6 80.0 - 100.0 fL [facility] MCH 29.5 27.0 - 31.0 pg [facility] MCHC 32.5 32.0 - 36.0 g/dL [facility] RDW 13.9 11.5 - 14.5 % [facility] MPV 11.8 8.4 - 12.0 fL [facility] NRBC 0.00 0.00 /100 WBCs [facility] ABSOLUTE NRBC 0.00 0.00 K/uL [facility] DIFF METHOD Auto [facility] NEUTS 74.2 48.0 - 76.0 % [facility] LYMPHS 18.9 18.0 - 41.0 % [facility] MONOS 5.0 4.0 - 11.0 % [facility] EOS 1.0 0.0 - 5.0 % [facility] BASOS 0.6 0.0 - 1.5 % [facility] Granulocytes, immature (%) 0.3 0.0 - 0.9 % [facility] ABSOLUTE NEUTS 6.40 1.92 - 7.60 K/uL [facility] ABSOLUTE LYMPHS 1.63 0.72 - 4.10 K/uL [facility] ABSOLUTE MONOS 0.43 0.16 - 1.10 K/uL [facility] ABSOLUTE EOS 0.09 0.00 - 0.50 K/uL [facility] ABSOLUTE BASOS 0.05 0.00 - 0.15 K/uL [facility] Granulocytes, immature 0.03 0.00 - 0.09 K/uL [facility] Blood 12/16/2024 4:47 PM EDT 12/16/2024 5:29 PM EDT Travon Faustin MD LAB BLOOD ORDERABLES Fin al Result Performing Organization Address [facility]/ZIP Co de Phone Number [address] [address] * Lipase (12/16/2024 4:47 PM EDT) LIPASE 46 16 - 63 U/L [facility] Blood 12/16/2024 4:47 PM EDT 12/16/2024 5:29 PM EDT Travon Faustin MD LAB BLOOD ORDERABLES Fin al Result Performing Organization Address [facility] Co de Phone Number [address] [address] * (ABNORMAL) Basic metabolic panel (12/16/2024 4:47 PM EDT) SODIUM 142 133 - 146 mmol/L [facility] CHLORIDE 101 96 - 108 mmol/L [facility] POTASSIUM 4.8 3.3 - 5.1 mmol/L [facility] CO2 27 21 - 35 mmol/L [facility] BUN 26(H) 6 - 19 mg/dL [facility] CREATININE 1.00 0.5 - 1.5 mg/dL [facility] GLUCOSE 115(H) 70 - 99 mg/dL [facility] CALCIUM 10.4(H) 8.4 - 10.3 mg/dL [facility] EGFR 67 >59 mL/min/1.7 3m2 [facility] Comment:Estimated glomerular filtration rate calculated using the CKD-EPI refit equation. ANION GAP 19 10 - 20 mmol/L [facility] Blood 12/16/2024 4:47 PM EDT 12/16/2024 5:29 PM EDT us Travon Faustin MD LAB BLOOD ORDERABLES Fin al Result Performing Organization Address [facility] Co de Phone Number [address] [address] * (ABNORMAL) Urinalysis w/reflex Urine Culture (12/16/2024 4:46 PM EDT) COLOR Yellow Yellow [facility] CLARITY Clear [facility] GLUCOSE Negative Negative [facility] BILI Negative Negative [facility] KETONES Negative Negative [facility] SPECIFIC GRAVITY <1.005 1.005 - 1.030 [facility] BLOOD Trace(A) Negative [facility] PH 6.0 5.0 - 8.0 [facility] Protein-UA Negative Negative [facility] NITRITE Negative Negative [facility] Leukocyte esterase, ur Negative Negative [facility] Urine (Urine) 12/16/2024 4:4 6 PM EDT 12/16/2024 5:53 PM EDT us Travon Faustin MD URINE ORDERABLES Final R esult Performing Organization Address [facility] Co de Phone Number [address] [address] from Last 3 Months Insurance [facility] [place] [address] [place] [address] Care Teams Automobile Parker Relationship Specialty Start Date End Date Katia Theodore MD [address] [place] [address] [place] [address] PCP - General Internal Medicine 11/28/23 Additional Source Comments The information contained in this document represents components of the legal health record. It is not the complete legal health record.[facility]
== END 2025-01-12 17:05 | disposition home or self-care (01) ==
LOC: HO.HMCFM 14:33
PROVIDERS: PCP Internal Medicine; Visit Provider Internal Medicine
DX: R73.03 Prediabetes (principal); N95.0 Postmenopausal bleeding; E89.0 Postprocedural hypothyroidism; M51.369 Other intervertebral disc degeneration, lumbar region without mention of lumbar back pain or lower extremity pain

== ENCOUNTER → 2025-01-12 14:33 | Outpatient (BNVA) | payer BC, SELFPAY | PROVIDERS: PCP Internal Medicine; Visit Provider Internal Medicine | DX: R73.03 Prediabetes (principal); N95.0 Postmenopausal bleeding; E89.0 Postprocedural hypothyroidism; M51.369 Other intervertebral disc degeneration, lumbar region without mention of lumbar back pain or lower extremity pain; F43.21 Adjustment disorder with depressed mood; K21.9 Gastro-esophageal reflux disease without esophagitis | CPT/HCPCS: 96127 ==